=== PATIENT | male | born 1950 | race Caucasian/White ===

== ENCOUNTER 2017-08-07 15:12 | Inpatient (IN) ==
--- NOTE | 2017-08-07 15:45 | Emergency Department Note ---
Disposition Clinical Impression: Pulmonary embolism Qualifiers: Pulmonary embolism type: other Chronicity: acute Acute cor pulmonale presence: without acute cor pulmonale Qualified Code(s): I26.99 - Other pulmonary embolism without acute cor pulmonale Disposition: Admitted As Inpatient Condition: Serious Forms: ED Satisfaction Letter Time of Disposition: 17:36 SOB HPI - General Chief Complaint: ED Shortness of Breath/Dyspnea Stated Complaint: CP/LARRY Time Seen by Provider: 08/07/17 15:39 Source: patient Mode of arrival: ambulatory Limitations: no limitations Nursing Notes Reviewed: Yes Vital Signs Reviewed: Yes - History of Present Illness 67-year-old male who comes in complaining of chest pain and shortness of breath he began about 3 hours prior to arrival. Patient is a diabetic but has no history of heart disease. Patient states he had a blood clot in his artery on his left leg in the past in 2001 has had bypass surgery of his leg. Pt Subjective Complaint: chest pain Onset (ago): [employer] Severity: moderate Consistency/Duration: constant Improves with: nothing Worsens with: exertion Known history of: diabetes Associated symptoms: Reports: chest pain Treatment prior to arrival: none Cough present: Yes Cough Description: Involuntary Cough Frequency: Intermittent Sputum Amount: None - Related Data Home Medications Medication Instructions Recorded Confirmed Aspirin Enteric Coated [Aspirin EC] 325 mg PO DAILY 09/12/15 08/07/17 Lisinopril [Zestril] 20 mg PO DAILY 09/12/15 08/07/17 Lovastatin 10 mg PO DAILY 09/12/15 08/07/17 Meloxicam [Mobic] 15 mg PO DAILY 09/12/15 08/07/17 Zolpidem [Ambien] 10 mg PO HS 09/12/15 08/07/17 glyBURIDE [GlyBURIDE] 2.5 mg PO DAILY 09/12/15 08/07/17 metFORMIN [Glucophage] 1,000 mg PO BIDWM 09/12/15 08/07/17 Allergies Allergy/AdvReac Type Severity Reaction Status Date / Time No Known Allergies Allergy Verified 01/12/16 08:23 Constitutional: Denies: fever, chills, weakness, weight change Eyes: Denies: eye pain, eye discharge, vision change ENT ED: Denies: ear pain, throat pain, dental pain, hearing loss, epistaxis, congestion, dysphagia Cardiovascular: Reports: chest pain, dyspnea on exertion. Denies: palpitations , edema, syncope Respiratory: Reports: dyspnea. Denies: cough, wheezes, hemoptysis, stridor Gastrointestinal: Denies: abdominal pain, nausea, vomiting, diarrhea, constipation, hematemesis, melena, hematochezia Genitourinary: Denies: urgency, dysuria, frequency, hematuria Musculoskeletal: Denies: back pain, neck pain, arthralgia, myalgia Integumentary: Denies: rash, abrasion, lesions Neurological: Denies: headache, weakness, numbness, paresthesias, confusion, abnormal gait, vertigo Psychiatric: Denies: anxiety, depression, suicidal thoughts, homicidal thoughts , auditory hallucinations, visual hallucinations Endocrine: Denies: fatigue Hematological/Lymphatic: Denies: easy bleeding, easy bruising Allergic/Immunologic: Denies: facial swelling, urticaria Past Medical History - Past Medical History Medical history: Reports: diabetes, hyperlipidemia, hypertension, peripheral artery disease, thyroid disease, kidney stones, DVT Surgical history: Reports: thyroidectomy Psychiatric history: Reports: no psych history - Social History Smoking Status: Former smoker Smokeless Tobacco Status: No Alcohol use: Reports: none Drug use: Reports: none Physical Exam - General Limitations: no limitations General appearance: alert, other - Head Head exam: atraumatic, normocephalic, normal inspection - Eye Eye exam: Present: normal appearance, PERRL, EOMI - ENT ENT exam: normal exam, normal oropharynx, mucous membranes moist - Neck Neck exam: Present: normal inspection, full ROM, trachea midline - Chest Chest inspection: Present: normal inspection, symmetric chest wall rise - Respiratory Respiratory exam: Present: normal lung sounds bilaterally - Cardiovascular Cardiovascular exam: Present: normal rhythm, tachycardia, normal heart sounds - Abdominal Exam Abdominal exam: Present: soft, Non-Tender. Absent: tenderness, distention, guarding, rebound, rigidity - Extremities Exam Extremities exam: Present: normal inspection, full ROM. Absent: tenderness, pedal edema - Expanded Lower Extremity Exam Gait: observed and normal - Back Exam Back exam: Present: normal inspection, full ROM. Absent: tenderness - Neurological Exam Neurological exam: Present: alert, oriented X3 - Psychiatric Psychiatric exam: Present: normal affect, normal mood - Skin Skin exam: Present: warm, dry, intact, normal color Course - Reevaluation(s) Reevaluation #1: 67-year-old male who comes in with acute onset shortness of breath chest pain. Workup included a EKG that showed tachycardia and no acute ST segment change. Troponin was elevated 0.14 renal function was normal. CTA of the chest shows bilateral PEs. Time: 17:33 - Consultations Consultation #1: Discussed with Dr. Kraft cardiology he will see the patient in consultation. Time: 17:10 Consultation #2: Discussed with Nenzel radiology bilateral pulmonary embolism and possible small lung infarct Time: 17:25 Consultation #3: Discussed with , admit. Time: 17:35 Vital Signs Temperature 97.4 F L 08/07/17 15:24 Pulse Rate 129 08/07/17 15:24 Respiratory Rate 24 08/07/17 15:24 Blood Pressure 123/81 08/07/17 15:24 O2 Sat by Pulse Oximetry 92 08/07/17 15:24 Temperature 97.4 F L 08/07/17 15:24 Pulse Rate 122 08/07/17 17:13 Respiratory Rate 16 08/07/17 17:13 Blood Pressure 127/77 08/07/17 17:13 O2 Sat by Pulse Oximetry 92 08/07/17 17:13 Oxygen Delivery Oxygen Delivery Room Air Shortness of Breath/Dyspnea - Lab Data Result diagrams: 08/07/17 15:54 08/07/17 15:54 Lab Results 08/07/17 08/07/17 08/07/17 Range/Units 15:54 15:54 15:54 WBC 14.4 H (4.3-11.1) K/mcL RBC 5.10 (4.19-5.50) M/mcL Hgb 15.2 (12.9-16.9) g/dL Hct 45.8 (37.5-50.1) % MCV 89.8 (83.0-100.0) fL MCH 29.8 (28.0-33.3) pg MCHC 33.2 (31.6-35.5) g/dL RDW 13.7 (11.5-14.5) % Plt Count 250 (140-400) K/mcL MPV 10.2 (9.4-12.4) fL Immature Gran % 0.5 (0-4) % Seg Neutrophils % 80.8 % Lymphocytes % 13.2 % Monocytes % 4.5 % Eosinophils % 0.7 % Basophils % 0.3 % Neutrophils # 11.6 H (1.6-8.9) K/mcL Lymphocytes # 1.9 (0.6-4.6) K/mcL Monocytes # 0.7 (0.0-1.3) K/mcL Eosinophils # 0.1 (0.0-0.6) K/mcL Basophils # 0.1 (0.0-0.2) K/mcL D-Dimer (0-500) ng/mLFEU Sodium 135 L (136-145) mEq/L Potassium 4.7 (3.5-5.1) mEq/L Chloride 102 (98-107) mEq/L Carbon Dioxide 21 L (23-29) mEq/L BUN 20 (8-23) mg/dL Creatinine 1.05 (0.70-1.30) mg/dL Est GFR ( Amer) > 60 (> 60) Est GFR (Non-Af Amer) > 60 (> 60) BUN/Creatinine Ratio 19 (6-26) Glucose 153 H (70-105) mg/dL Calculated Osmolality 286 (280-300) Lactic Acid 2.4 H (0.5-2.2) mmol/L Calcium 9.4 (8.6-10.3) mg/dL Troponin I 0.14 H* (< 0.04) ng/mL B-Natriuretic Peptide (Less than 100) pg/mL 08/07/17 08/07/17 Range/Units 15:54 15:54 WBC (4.3-11.1) K/mcL RBC (4.19-5.50) M/mcL Hgb (12.9-16.9) g/dL Hct (37.5-50.1) % MCV (83.0-100.0) fL MCH (28.0-33.3) pg MCHC (31.6-35.5) g/dL RDW (11.5-14.5) % Plt Count (140-400) K/mcL MPV (9.4-12.4) fL Immature Gran % (0-4) % Seg Neutrophils % % Lymphocytes % % Monocytes % % Eosinophils % % Basophils % % Neutrophils # (1.6-8.9) K/mcL Lymphocytes # (0.6-4.6) K/mcL Monocytes # (0.0-1.3) K/mcL Eosinophils # (0.0-0.6) K/mcL Basophils # (0.0-0.2) K/mcL D-Dimer 1761 H (0-500) ng/mLFEU Sodium (136-145) mEq/L Potassium (3.5-5.1) mEq/L Chloride (98-107) mEq/L Carbon Dioxide (23-29) mEq/L BUN (8-23) mg/dL Creatinine (0.70-1.30) mg/dL Est GFR ( Amer) (> 60) Est GFR (Non-Af Amer) (> 60) BUN/Creatinine Ratio (6-26) Glucose (70-105) mg/dL Calculated Osmolality (280-300) Lactic Acid (0.5-2.2) mmol/L Calcium (8.6-10.3) mg/dL Troponin I (< 0.04) ng/mL B-Natriuretic Peptide 39 (Less than 100) pg/mL - EKG Data EKG attestation: Yes I reviewed and interpreted this EKG. EKG shows normal: Reports: sinus rhythm Rate: Reports: tachycardia Rhythm: Reports: NSR [place]/QRS: Reports: normal Interpretation: Reports: no acute changes Critical Care Time Critical Care Time: Yes Total Critical Care Time: 35 Attestation: The high probability of a clinically significant, sudden or life threatening deterioration of the [cardiovascular] system(s) required my full and direct attention, intervention and personal management. The aggregate critical care time was [] minutes. This time is in addition to time spent performing reported procedures but includes the following: [x] Data Review and interpretation [x] Patient assessment and monitoring of vital signs [x] Documentation [x] Medication orders and management
[2017-08-07 16:16] LABS: Basophils # 0.1 K/mcL (0.0-0.2); Basophils % 0.3 %; Eosinophils # 0.1 K/mcL (0.0-0.6); Eosinophils % 0.7 %; Hematocrit 45.8 % (37.5-50.1); Hemoglobin 15.2 g/dL (12.9-16.9); Immature Granulocytes % 0.5 % (0-4); Lymphocytes # 1.9 K/mcL (0.6-4.6); Lymphocytes % 13.2 %; Mean Corpuscular HGB Conc 33.2 g/dL (31.6-35.5); Mean Corpuscular Hemoglobin 29.8 pg (28.0-33.3); Mean Corpuscular Volume 89.8 fL (83.0-100.0); Mean Platelet Volume 10.2 fL (9.4-12.4); Monocytes # 0.7 K/mcL (0.0-1.3); Monocytes % 4.5 %; Neutrophils # 11.6 K/mcL (1.6-8.9); Platelet Count 250 K/mcL (140-400); Red Cell Distribution Width 13.7 % (11.5-14.5); Segmented Neutrophils % 80.8 %
[2017-08-07 16:38] LABS: BUN/Creatinine Ratio 19 (6-26); Blood Urea Nitrogen 20 mg/dL (8-23); Calcium 9.4 mg/dL (8.6-10.3); Carbon Dioxide 21 mEq/L (23-29); Chloride 102 mEq/L (98-107); Glucose 153 mg/dL (70-105); Osmolality,Calculated 286 (280-300); Potassium 4.7 mEq/L (3.5-5.1); Sodium 135 mEq/L (136-145); eGFR For African Americans > 60 (> 60); eGFR For Non-African Americans > 60 (> 60)
[2017-08-07] MEDS ORDERED: Isovue-370 500 ML INFUS..BTL IV ONE (16:41)
[2017-08-07 16:54] LABS: Troponin I 0.14 ng/mL (< 0.04)
[2017-08-07] MEDS ORDERED: *HR* Heparin 5,000 UNIT/ML VIAL IVP ONE (17:25)
[2017-08-07] MEDS ORDERED: *HR* Heparin 5,000 UNIT/ML VIAL IVP PRN (17:25)
[2017-08-07 17:30] LABS: INR 1.2; Prothrombin Time 13.3 Seconds (9.4-12.1)
[2017-08-07 17:32] LABS: Activated Partial Thrombo Time 29.6 Seconds (26.0-36.0)
--- NOTE | 2017-08-07 17:41 | Internal Med History&Physical ---
Date of Encounter: 08/07/17 Time of Encounter: 17:36 Assessment and Plan (1) Obesity Current visit: Yes Status: Chronic Qualifiers: Obesity type: due to excess calories Obesity classification: unspecified obesity classification Serious obesity comorbidity presence: unspecified whether serious comorbidity present Qualified Code(s): E66.09 - Other obesity due to excess calories (2) Elevated troponin Current visit: Yes Status: Acute Most likely due to pulmonary embolism with trend troponin (3) Pulmonary embolism Current visit: Yes Status: Acute Acute bilateral pulmonary embolism started on heparin per protocol With trend ````````````troponin obtain 2-D echo Qualifiers: Pulmonary embolism type: other Chronicity: acute Acute cor pulmonale presence: without acute cor pulmonale Qualified Code(s): I26.99 - Other pulmonary embolism without acute cor pulmonale (4) Diabetes mellitus type II, non insulin dependent Current visit: No Status: Chronic Chronic we will start him sliding scale (5) Hyperlipidemia Current visit: No Status: Chronic Chronic check a lipid profile in a.m. Qualifiers: Hyperlipidemia type: pure hypercholesterolemia Qualified Code(s): E78.00 - Pure hypercholesterolemia, unspecified; E78.0 - Pure hypercholesterolemia (6) Hypertension Current visit: No Status: Chronic Chronic and well controlled Qualifiers: Hypertension type: essential hypertension Qualified Code(s): I10 - Essential (primary) hypertension Internal Medicine - H&P: HPI Chief complaint: chest pain and sob Admitted From: Emergency Dept Plans for Post Hospital Care: Home History of present illness: Mr. Matias is a 67 year old male Patient with history of diabetes, hypertension, morbid obesity, TIA, high cholesterol, and vascular disease and thyroid disease. Patient present emergency room with 3 hours of acute sudden onset of shortness of breath and chest pain had persisted until he came into the emergency room in emergency room evaluation troponin was 0.14 CTA of the chest shows bilateral pulmonary embolism patient be started on full dose heparin protocol. He is hemodynamically stable stable we will also obtain 2-D echo in a.m. assess lv function and see if any RV strain Past Med Surg Social Fam HX - Past Medical History Medical history: diabetes, hyperlipidemia, hypertension, peripheral artery disease, thyroid disease, kidney stones, DVT Psychiatric history: no psych history - Past Surgical History Surgical History: thyroidectomy - Social History Smoking Status: Former smoker Smokeless Tobacco Status: No Alcohol use: none Drug use: none - Family History Mother Living Status: Hx Family Cancer: Yes (uterus, intestinal) Father Living Status: Hx Family Cancer: Yes (brain tumor) Internal Medicine - H&P: Meds Aspirin Enteric Coated [Aspirin EC] 325 mg PO DAILY 09/12/15 [History] Lisinopril [Zestril] 20 mg PO DAILY 09/12/15 [History] Lovastatin 10 mg PO DAILY 09/12/15 [History] Meloxicam [Mobic] 15 mg PO DAILY 09/12/15 [History] Zolpidem [Ambien] 10 mg PO HS 09/12/15 [History] glyBURIDE [GlyBURIDE] 2.5 mg PO DAILY 09/12/15 [History] metFORMIN [Glucophage] 1,000 mg PO BIDWM 09/12/15 [History] 3 Allergy/AdvReac Type Severity Reaction Status Date / Time No Known Allergies Allergy Verified 01/12/16 08:23 All Systems PM: A 10-system review of systems was performed and is negative for pertinent findings except as documented above in the HPI. - Constitutional Constitutional: no chills, no fever(s), no night sweats - EENT Eyes: no change in vision, no discharge, no pain, no photophobia Ears: no ear discharge, no ear pain, no tinnitus Nose, mouth and throat: no dysphagia, no nasal discharge, no neck pain, no sore throat - Cardiovascular Cardiovascular ROS IM: chest pain, dyspnea on exertion - Respiratory Respiratory: dyspnea, dyspnea on exertion - Gastrointestinal Gastrointestinal: no abdominal pain, no diarrhea, no hematemesis, no hematochezia, no melena, no nausea, no vomiting - Musculoskeletal Musculoskeletal ROS IM: no numbness, no tingling - Integumentary Integumentary IM: no rash, no unusual bruising - Constitutional Vitals: Temp Pulse Resp BP Pulse Ox 97.4 F L 122 16 127/77 92 08/07/17 15:24 08/07/17 17:13 08/07/17 17:13 08/07/17 17:13 08/07/17 17:13 General appearance: Present: mild distress - Eye Eye exam: Present: PERRL, conjuntiva pink, sclera anicteric Pupils: Present: PERRL - Neck Neck exam general surgery: Present: supple, trachea midline. Absent: lymphadenopathy - Respiratory Respiratory exam: Present: CTAB. Absent: accessory muscle use, rales, rhonchi, wheezes - Cardiovascular Cardiovascular exam: Present: RRR, +S1, +S2. Absent: diastolic murmur, gallop, rubs, systolic murmur - GI/Abdominal GI/Abdominal exam: Present: normal bowel sounds, soft, no peritoneal signs. Absent: distended, tenderness - Extremities Exam Extremities exam: Present: warm, radial pulses palpable and symmetrical. Absent : calf tenderness, cyanotic, pedal edema Internal Med - H&P Results - Labs CBC & Chem 7: 08/07/17 15:54 08/07/17 15:54 Labs: Short CBC 08/07/17 Range/Units 15:54 WBC 14.4 H (4.3-11.1) K/mcL Hgb 15.2 (12.9-16.9) g/dL Hct 45.8 (37.5-50.1) % Plt Count 250 (140-400) K/mcL Neutrophils # 11.6 H (1.6-8.9) K/mcL BMP 08/07/17 15:54 Sodium 135 L Potassium 4.7 Chloride 102 Carbon Dioxide 21 L BUN 20 Creatinine 1.05 Glucose 153 H Calcium 9.4 Cardiac Enzymes 08/07/17 Range/Units 15:54 Troponin I 0.14 H* (< 0.04) ng/mL - Impressions ITS Impressions Chest X-Ray 08/07/17 15:39 IMPRESSION: No acute process. D/ / Foreign Mckenzie MD / Foreign Mckenzie MD Interpreting Provider: Foreign Mckenzie MD Chest CTA 08/07/17 16:41 IMPRESSION: Bilateral pulmonary emboli are identified, involving the left upper and lower lobe, as well as the right upper and lower lobe. There is a focal ground-glass infiltrate seen in the right lower lobe, with no definite associated adjacent embolism to suggest a developing infarct. A focal pneumonic infiltrate is in the differential. Increased RV/LV ratio of 5.0/4.2. I discussed this with Dr. Bunch at 5:30 p.m. on 08/07/2017. No pulmonary arterial enlargement is identified. Enlarged left thyroid lobe which extends into the mediastinum, with an associated 13 mm nodule inferiorly. This would not be amenable by interventional radiology or typical thyroid aspiration for tissue evaluation given its location. Thyroid nodule follow-up recommendations below. RECOMMENDATIONS: Managing Incidental Thyroid Nodule Detected at CT or MRI or US 1. Further evaluation by thyroid Ultrasound recommended for these incidental nodules: Patient Age 18 years or less - Any nodule. Patient Age 19-34 years old - Nodule 1 cm in size or greater Patient Age 35 years or more - Nodule 1.5 cm in size or greater 2. Follow up thyroid ultrasound also recommend in these scenarios -Solitary nodule with high risk imaging features (locally invasive nodule or suspicious lymph nodes) -Any nodule in a heterogeneous enlarged thyroid gland 3. NO further imaging is recommended in the following scenarios -No f/u imaging is recommended for ITNs not meeting the above criteria. -No US or f/u recommended for ITNs without high risk features in pts. with limited life expectancy or significant co-morbidities, unless clinically warranted. Note: These recommendations do not apply to pts. w/ increased risk for thyroid cancer or pts. with symptomatic thyroid disease. Recommendations for f/u of Incidental Thyroid Nodules (ITN) found on CT, MR, NM and Extrathyroidal US are based upon the ACR white paper and Sommers 3-tiered system for managing ITNs: J Am Johana Radiol. 2015 May;12(2): 143-50 D/ / Sachin Masters MD / Sachin Masters MD Interpreting Provider: Sachin Masters MD
[2017-08-07 17:43] LABS: ABG Base Excess -2 mEq/L (-2 to 3); ABG HCO3 22 mEq/L (21-27); ABG Oxygen Saturation 95 % (95-98); ABG PCO2 34 mmHg (35-45); ABG PH 7.41 pH Units (7.32-7.45); ABG PO2 72 mmHg (85-104); ABG TCO2 23 mEq/L (20-26)
[2017-08-07] MEDS ORDERED: Acetaminophen 325 MG TABLET PO PRN (17:45)
[2017-08-07] MEDS ORDERED: traMADol 50 MG TABLET PO PRN (17:45)
[2017-08-07] MEDS ORDERED: Naloxone 0.4 MG/ML INJ IVP PRN (17:45)
[2017-08-07] MEDS ORDERED: *HR* Dextrose 50 % in Water (Syg) 50 ML SYRINGE IVP PRN (17:48)
[2017-08-07] MEDS ORDERED: D5% in Water 1,000 ML IVC PRN (17:48)
[2017-08-07] MEDS ORDERED: Dextrose Gel 15 GM/37.5 ML TUBE PO PRN ×2 (17:48)
[2017-08-07] MEDS: Heparin 25,000 UNIT/500 ML D5W 25,000 UNIT/500 ML BAG IVC SCH (18:04)
[2017-08-07] MEDS: Insulin LISPRO 300 UNITS/3 ML VIAL SQ SCH (20:02)
[2017-08-08 06:30] LABS: Hematocrit 44.2 % (37.5-50.1); Hemoglobin 14.7 g/dL (12.9-16.9); Mean Corpuscular HGB Conc 33.3 g/dL (31.6-35.5); Mean Corpuscular Hemoglobin 29.8 pg (28.0-33.3); Mean Corpuscular Volume 89.7 fL (83.0-100.0); Mean Platelet Volume 10.5 fL (9.4-12.4); Platelet Count 227 K/mcL (140-400); Red Blood Count 4.93 M/mcL (4.19-5.50); Red Cell Distribution Width 13.8 % (11.5-14.5)
[2017-08-08 07:13] LABS: Alanine Aminotransferase 61 Units/L (7-52); Albumin 3.8 g/dL (3.5-5.7); Albumin/Globulin Ratio 1.3 (1.1-2.2); Alkaline Phosphatase 60 Units/L (34-104); Aspartate Amino Transferase 38 Units/L (13-39); BUN/Creatinine Ratio 17 (6-26); Bilirubin,Total 0.5 mg/dL (0.3-1.0); Blood Urea Nitrogen 16 mg/dL (8-23); Calcium 8.9 mg/dL (8.6-10.3); Carbon Dioxide 25 mEq/L (23-29); Chloride 106 mEq/L (98-107); Chol/HDL Ratio 2.8 (0-4.9); Cholesterol 108 mg/dL (< 200); Glucose 133 mg/dL (70-105); HDL Cholesterol 39 mg/dL (40-59); LDL Cholesterol,Calculated 44 mg/dL (0-99); Osmolality,Calculated 289 (280-300); Potassium 4.5 mEq/L (3.5-5.1); Sodium 138 mEq/L (136-145); Total Protein 6.8 g/dL (6.4-8.9); Triglycerides 123 mg/dL (< 150); eGFR For African Americans > 60 (> 60); eGFR For Non-African Americans > 60 (> 60)
[2017-08-08] MEDS: Insulin LISPRO 300 UNITS/3 ML VIAL SQ SCH ×4 (07:43→20:00)
[2017-08-08] MEDS: Aspirin Enteric Coated 325 MG Tablet PO SCH (08:36)
[2017-08-08] MEDS: Lisinopril 20 MG TABLET PO SCH (08:36)
[2017-08-08] MEDS: Heparin 25,000 UNIT/500 ML D5W 25,000 UNIT/500 ML BAG IVC SCH (08:47)
[2017-08-08] MEDS ORDERED: Perflutren Lipid Microsphere 1.3 ML in 0.9 % Sodium Chloride 8.7 ML IVP ONE (09:32)
--- NOTE | 2017-08-08 09:57 | Cardiology Consult Note ---
<Efra Jones Eliza - Last Filed: 08/08/17 10:44> Date of Encounter: 08/08/17 Time of Encounter: 08:45 Assessment and Plan (1) Elevated troponin Current Visit: Yes Status: Acute CTA shows bilateral PE Trop: 0.14, 0.58. 0.61, and 0.33 - now downtrending, likely demand ischemia secondary to PE EKG shows tachycardia with no ST changes TTE in 2016: LVEF 55% with normal LV function, moderate diastolic dysfunction, no valvular disease Repeat echo pending to evaluate right heart strain Pt has significant risk factors for CAD (extensive PVD, HTN, DM) - plan for NM stress test tomorrow, NPO after midnight - further recommendations pending Echo and Stress test (2) Pulmonary embolism Current Visit: Yes Status: Acute Chest pain and dyspnea secondary to bilateral PE On heparin drip to transition to anticoagulation Chest pain now resolved Qualifiers: Pulmonary embolism type: other Chronicity: acute Acute cor pulmonale presence: without acute cor pulmonale Qualified Code(s): I26.99 - Other pulmonary embolism without acute cor pulmonale (3) Hyperlipidemia Current Visit: Yes Status: Chronic Continue statin Qualifiers: Hyperlipidemia type: pure hypercholesterolemia Qualified Code(s): E78.00 - Pure hypercholesterolemia, unspecified; E78.0 - Pure hypercholesterolemia (4) Hypertension Current Visit: Yes Status: Chronic Continue lisinopril Qualifiers: Hypertension type: essential hypertension Qualified Code(s): I10 - Essential (primary) hypertension (5) Diastolic CHF, chronic Current Visit: Yes Status: Chronic Well compensated Diastolic CHF - no evidence of exacerbation, mild bilateral edema, no crackles on exam, no JVD CXR shows no acute process, no pleural effusions Previous EF 50% with moderate diastolic dysfunction Continue ACEI and ASA (6) MINA (obstructive sleep apnea) Current Visit: Yes Status: Acute Compliant with CPAP at night Discussion w patient/family: The assessment and plan as outlined above was discussed with the patient and/or family members who expressed understanding and agreement. All questions were answered. Thank you for involving us in the care of your patient. Please call with any questions. History of Present Illness Consult date: 08/07/17 Requesting physician: Nilton Bunch Consult reason: Chest pain, positive troponin Chief complaint: Dyspnea, Chest pain History of present illness: Mr. Matias is a 67 year old male with PMH of HTN, HLD, PVD, DVT, DM, MINA, and obesity, presented to the hospital with 3 hour history of dyspnea and central chest pain. Diagnosed with bilateral PE and started on Heparin drip. Consulted for elevated troponin. Patient denies chest pain now and states his breathing is much improved. Denies any cardiac history, but he does have significant risk factors. Reports extensive peripheral vascular disease with multiple interventions. Does admit to progressively worsening PATRICK over time and has become very inactive due to leg pain and breathing. Reports his LE edema has been stable for several years. Denies associated diaphoresis, palpitations, or N /V. Prior Cardiac Imaging: - TTE 2016: LVEF 50%, normal LV function, moderate diastolic dysfunction, no valvular disease - previous stress test in 1998 - no hx of cardiac disease Past Med Surg Social Fam HX - Past Medical History Medical history: diabetes, hyperlipidemia, hypertension, peripheral artery disease, thyroid disease, kidney stones, DVT Psychiatric history: no psych history - Past Surgical History Surgical History: thyroidectomy - Social History Smoking Status: Former smoker Smokeless Tobacco Status: No Alcohol use: none Drug use: none - Family History Mother Living Status: Hx Family Cancer: Yes (uterus, intestinal) Father Living Status: Hx Family Cancer: Yes (brain tumor) Medications and Allergies Aspirin Enteric Coated [Aspirin EC] 325 mg PO DAILY 09/12/15 [History] Lisinopril [Zestril] 20 mg PO DAILY 09/12/15 [History] Lovastatin 10 mg PO DAILY 09/12/15 [History] Meloxicam [Mobic] 15 mg PO DAILY 09/12/15 [History] Zolpidem [Ambien] 10 mg PO HS 09/12/15 [History] glyBURIDE [GlyBURIDE] 2.5 mg PO DAILY 09/12/15 [History] metFORMIN [Glucophage] 1,000 mg PO BIDWM 09/12/15 [History] 3 Allergy/AdvReac Type Severity Reaction Status Date / Time No Known Allergies Allergy Verified 01/12/16 08:23 All Systems Review: The remainder of the systems were reviewed and are negative Physical Examination Vital Signs, Last 4 Hours Temp Pulse Resp BP Pulse Ox 08/08/17 08:40 96 08/08/17 07:31 97.7 F 87 16 113/73 96 General: Conversant, No Apparent Distress HEENT: Atraumatic, Normocephaly, Mucus Membranes Moist Neck: No JVD, Normal carotid pulses Cardiac: Reg Rate and Rhythm, Normal S1 and S2, No Murmur Lungs: Normal Breath Sounds, No Wheeze, Rales, Rhonchi Neuro: Alert and responsive, No focal deficits noted Abdomen: Soft, Non-Tender Skin: No rashes noted on visualized skin Musculoskeletal: No Chest Wall Tenderness Extremities: No Clubbing, No Cyanosis, Normal Pulses, Other (mild bilateral LE edema) Results 08/08/17 06:07 08/08/17 06:07 Lab Results 08/07/17 08/08/17 08/08/17 21:31 00:23 00:23 WBC Hgb Hct Plt Count APTT 100.0 H D Sodium Potassium Chloride Carbon Dioxide BUN Creatinine Glucose Calcium Magnesium Total Bilirubin AST ALT Alkaline Phosphatase Troponin I 0.58 H* 0.61 H* B-Natriuretic Peptide 08/08/17 08/08/17 08/08/17 06:07 06:07 06:07 WBC 9.9 Hgb 14.7 Hct 44.2 Plt Count 227 APTT Sodium 138 Potassium 4.5 Chloride 106 Carbon Dioxide 25 BUN 16 Creatinine 0.94 Glucose 133 H Calcium 8.9 Magnesium 2.0 Total Bilirubin 0.5 AST 38 ALT 61 H Alkaline Phosphatase 60 Troponin I B-Natriuretic Peptide 262 H 08/08/17 08/08/17 06:07 06:07 WBC Hgb Hct Plt Count APTT 61.0 H Sodium Potassium Chloride Carbon Dioxide BUN Creatinine Glucose Calcium Magnesium Total Bilirubin AST ALT Alkaline Phosphatase Troponin I 0.33 H* B-Natriuretic Peptide Consult Discharge Plan - Plan Referrals: Stefani Hutchison CNP [Partnered Physician] - 08/10/17 10:35 am <Jackson Kraft - Last Filed: 08/09/17 17:22> Date of Encounter: 08/08/17 Time of Encounter: 18:30 - Attending Attestation I examined this patient and my medical decision-making was reviewed with the Resident Physician. I agree with the documented findings, disposition and treatment plan as described except to the extent set forth below. CC: Chest pain Pt reports sudden onset severe, 10/10 mid sternal chest pain, occurred at rest, associated with mild shortness of breath, which became progressively more severe , no nausea or diaphoresis, palpitations or near syncope. Pt reports chest pain slowly improved over 45 to 60 minutes. He has not had a reoccurrence of chest pain since admission. Shortness of breath has improved. PMH: Reviewed Physical exam, reviewed, agree with above IMP: 1. Acute bilateral pulmonary embolism, now on heparin drip 2. Elevated troponin: .58 and .61, mildly elevated, no acute EKG changes, most consistent with demand ischemia, however in light of multiple risk factors, pt is a candidate for pharmocologic nuclear stress imaging, will schedule before discharge, 2. PVD with hx multple revascularization procedures 3. Hyptn; adequately controlled on current meds. 4. 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 Hyperlipidemia - reports at goal on most recent evaluation Assessment and Plan Discussion w patient/family: The assessment and plan as outlined above was discussed with the patient and/or family members who expressed understanding and agreement. All questions were answered. Thank you for involving us in the care of your patient. Please call with any questions. History of Present Illness History of present illness: Mr. Matias is a 67 year old male All Systems Review: The remainder of the systems were reviewed and are negative Physical Examination Vital Signs, Last 4 Hours Temp Pulse Resp BP Pulse Ox 08/09/17 15:41 97.7 F 79 18 120/72 93 08/09/17 15:19 96 Results 08/09/17 00:13 08/09/17 00:13 Lab Results 08/08/17 08/09/17 08/09/17 18:34 00:13 00:13 WBC 11.4 H Hgb 14.3 Hct 43.4 Plt Count 233 APTT 83.4 H D Sodium 138 Potassium 4.2 Chloride 105 Carbon Dioxide 26 BUN 19 Creatinine 1.00 Glucose 108 H Calcium 8.8 Magnesium 1.9 08/09/17 08/09/17 08/09/17 00:13 08:33 15:31 WBC Hgb Hct Plt Count APTT 56.7 H 84.0 H 55.8 H Sodium Potassium Chloride Carbon Dioxide BUN Creatinine Glucose Calcium Magnesium
--- NOTE | 2017-08-08 13:50 | Oncology Inp Consult Note ---
<Ana Altamirano - Last Filed: 08/08/17 17:54> Date of Encounter: 08/08/17 Time of Encounter: 13:50 Assessment and Plan (1) Pulmonary embolism Status: Acute Assessment and plan: CTA revealed "Bilateral pulmonary emboli are identified, involving the left upper and lower lobe, as well as the right upper and lower lobe. There is a focal ground-glass infiltrate seen in the right lower lobe, with no definite associated adjacent embolism to suggest a developing infarct. A focal pneumonic infiltrate is in the differential." Given that this is this patients second unprovoked thrombotic event, recommendation is made to continue anticoagulation indefinitely. Recommend he transition to Xarelto 15 mg PO BID x21 days then transition to Xarelto 20 mg PO daily indefinitely. Will defer stopping heparin gtt/starting xarelto to primary team pending his further cardiac workup. Cardiology consult reviewed, he is planned for stress test tomorrow. Echo report pending. He understands that the main risk with AC is bleeding and understands s/s of bleeding to watch for and report. His kidney function is normal at this time. Will also order BLE venous doppler as he does report LLE cramping although mild and intermittent, would like to establish baseline. manager of creative services consult ordered to assess insurance coverage for Xarelto. He remains on 2L nasal cannula, continue to monitor during hospital stay and attempt to wean, 6 minute walk test if needed. Discussed general course to expect with PE and that symptoms will continue to resolve with AC management, if symptoms worsen or do not improve further workup will be needed at that time. Will arrange for follow up with Dr. Panda as an outpatient. Please refer to Dr. Panda's attestation below for additional details. Thank you for involving us within the care of this patient. Qualifiers: Pulmonary embolism type: other Chronicity: acute Acute cor pulmonale presence: without acute cor pulmonale Qualified Code(s): I26.99 - Other pulmonary embolism without acute cor pulmonale - Data of Consult Patient: new to practice Consult date: 08/08/17 Requesting Physician: Josi Holbrook MD Primary Care Provider: Aguilar Waters MD - Consult Narrative Reason for consult: Acute PE History of present illness: Mr. Matias is a 67 year old male with past medical history significant for diabetes, hypertension, morbid obesity, TIA, high cholesterol, LLE DVT around 1997, and vascular disease and thyroid disease. He presented to the ER on 08/07/2017 following acute onset of chest pain and SOB unrelieved with rest for over 2 hours. CTA revealed "Bilateral pulmonary emboli are identified, involving the left upper and lower lobe, as well as the right upper and lower lobe. There is a focal ground-glass infiltrate seen in the right lower lobe, with no definite associated adjacent embolism to suggest a developing infarct. A focal pneumonic infiltrate is in the differential." He has an elevated troponin (0.14 in ER). He was started on a heparin gtt and transferred to inpatient admission for further workup and cardiology consultation. He reports a history of LLE DVT around 1997 which was apparently unprovoked in nature and treated only with aspirin. Since this time, he has had multiple vascular complications requiring vascular surgical interventions. Mr. Matias is obese, he quit smoking in 2003 with about a 37 pack year history. He has not had any recent prolonged travel, hospitalization or recent procedure. He is currently working to lose weight with weight watchers and attempting to walk on a regular basis. Past Med Surg Social Fam HX - Past Medical History Medical history: diabetes, hyperlipidemia, hypertension, peripheral artery disease, thyroid disease, kidney stones, DVT Psychiatric history: no psych history - Past Surgical History Surgical History: thyroidectomy - Social History Smoking Status: Former smoker Smokeless Tobacco Status: No Alcohol use: none Drug use: none - Family History Mother Living Status: Hx Family Cancer: Yes (uterus, intestinal) Father Living Status: Hx Family Cancer: Yes (brain tumor) Medications and Allergies Aspirin Enteric Coated [Aspirin EC] 325 mg PO DAILY 09/12/15 [History] Lisinopril [Zestril] 20 mg PO DAILY 09/12/15 [History] Lovastatin 10 mg PO DAILY 09/12/15 [History] Meloxicam [Mobic] 15 mg PO DAILY 09/12/15 [History] Zolpidem [Ambien] 10 mg PO HS 09/12/15 [History] glyBURIDE [GlyBURIDE] 2.5 mg PO DAILY 09/12/15 [History] metFORMIN [Glucophage] 1,000 mg PO BIDWM 09/12/15 [History] 3 Allergy/AdvReac Type Severity Reaction Status Date / Time No Known Allergies Allergy Verified 01/12/16 08:23 Constitutional: Present: as per HPI. Absent: anorexia, chills, fatigue, fever(s ), frequent falls, weakness, weight loss Eyes: Absent: change in vision Nose, mouth and throat: Absent: dysphagia Cardiovascular: Present: as per HPI, chest pain Additional comments: improved since admission Respiratory: Present: as per HPI, dyspnea. Absent: cough Additional comments: improved since admission Gastrointestinal: Absent: abdominal pain, hematemesis, hematochezia, melena, nausea, vomiting Additional comments: dysuria, hematuria Musculoskeletal: Absent: muscle weakness Integumentary: Present: other Additional comments: chronic skin changes to LLE secondary to venous insufficiency Neurological: Absent: confusion, focal weakness, frequent falls Hematologic/Lymphatic: Present: as per HPI Oncology - Exam - Constitutional Vitals: Temp Pulse Resp BP Pulse Ox 97.7 F 86 16 108/66 95 08/08/17 11:20 08/08/17 11:20 08/08/17 11:20 08/08/17 11:20 08/08/17 11:20 General appearance: cooperative, no acute distress, no febrile - Head Head exam: Present: atraumatic - ENT ENT exam: Present: mucous membranes moist - Respiratory Respiratory exam: Present: CTAB. Absent: respiratory distress - Cardiovascular Cardiovascular exam: Present: RRR, +S1, +S2 - GI/Abdominal GI/Abdominal exam: Present: normal bowel sounds, soft. Absent: tenderness - Extremities Exam Additional comments: currently denies calf tenderness, LLE appears slightly larger than RLE, states this is chronic, unable to completely assess with compression stockings in place - Neurological Exam Neurological exam: Present: alert, oriented X3, no focal deficits, strengths equal and symetr throughout - Psychiatric Psychiatric exam: Present: normal affect, normal mood - Skin Skin exam: Present: dry, intact, normal color, warm Oncology - Results Labs: Short CBC 08/08/17 Range/Units 06:07 WBC 9.9 (4.3-11.1) K/mcL Hgb 14.7 (12.9-16.9) g/dL Hct 44.2 (37.5-50.1) % Plt Count 227 (140-400) K/mcL BMP 08/08/17 06:07 Sodium 138 Potassium 4.5 Chloride 106 Carbon Dioxide 25 BUN 16 Creatinine 0.94 Glucose 133 H Calcium 8.9 Cardiac Enzymes 08/07/17 08/08/17 08/08/17 Range/Units 21:31 00:23 06:07 Troponin I 0.58 H* 0.61 H* 0.33 H* (< 0.04) ng/mL Liver Function 08/08/17 Range/Units 06:07 Total Bilirubin 0.5 (0.3-1.0) mg/dL AST 38 (13-39) Units/L ALT 61 H (7-52) Units/L Alkaline Phosphatase 60 (34-104) Units/L Albumin 3.8 (3.5-5.7) g/dL Consult Discharge Plan - Plan Referrals: Stefani Hutchison CNP [Partnered Physician] - 08/10/17 10:35 am <Luis Panda - Last Filed: 08/09/17 07:27> Date of Encounter: 08/09/17 - Data of Consult Requesting Physician: Josi Holbrook MD Primary Care Provider: Aguilar Waters MD - Consult Narrative History of present illness: Mr. Matias is a 67 year old male Oncology - Exam - Constitutional Vitals: Temp Pulse Resp BP Pulse Ox 97.6 F 78 17 112/73 96 08/09/17 07:17 08/09/17 07:17 08/09/17 07:17 08/09/17 07:17 08/09/17 07:17 Oncology - Results Labs: Short CBC 08/09/17 Range/Units 00:13 WBC 11.4 H (4.3-11.1) K/mcL Hgb 14.3 (12.9-16.9) g/dL Hct 43.4 (37.5-50.1) % Plt Count 233 (140-400) K/mcL Neutrophils # 6.4 (1.6-8.9) K/mcL BMP 08/09/17 00:13 Sodium 138 Potassium 4.2 Chloride 105 Carbon Dioxide 26 BUN 19 Creatinine 1.00 Glucose 108 H Calcium 8.8 - Attending Attestation I have seen and examined Mr. Matias and agree with Ms. altamirano's assessment. Patient has newly diagnosed unprovoked pulmonary embolism. In addition, he has a history of the lower extremity thrombosis in the distant past. He has been placed on a heparin drip and I think transitioning to Xarelto is is reasonable time of discharge. I would recommend baseline duplex Doppler of the lower extremities if not completed. Given the unprovoked nature of his event as well as his history of prior thrombosis, I think an indefinite course of anticoagulation is indicated. We discussed expectations of recovery from his pulmonary embolism. He may require discharged on oxygen temporarily There is no role for thrombophilia testing at this juncture.
[2017-08-08] MEDS: *HR* Heparin 5,000 UNIT/ML VIAL IVP PRN (15:00)
--- NOTE | 2017-08-08 15:37 | Internal Med Progress Note ---
Date of Encounter: 08/08/17 Time of Encounter: 14:50 - Assessment and plan (1) Elevated troponin Current Visit: Yes Status: Acute Assessment and plan: Cardiology evaluation appreciated f/u 2D echo scheduled for nuclear stress test in am, NPO after midnight pt currently chest pain free (2) Pulmonary embolism Current Visit: Yes Status: Acute Assessment and plan: Chest pain and dyspnea resolved continue heparin gtt at this time oncology evaluation appreciated will defer to oncology for [facility] anticoagulation O2 supplementation as needed Qualifiers: Pulmonary embolism type: other Chronicity: acute Acute cor pulmonale presence: without acute cor pulmonale Qualified Code(s): I26.99 - Other pulmonary embolism without acute cor pulmonale (3) Diastolic CHF, chronic Current Visit: Yes Status: Chronic Assessment and plan: not in acute exacerbation continue home medications (4) Hyperlipidemia Current Visit: Yes Status: Chronic Assessment and plan: continue home statin dose Qualifiers: Hyperlipidemia type: pure hypercholesterolemia Qualified Code(s): E78.00 - Pure hypercholesterolemia, unspecified; E78.0 - Pure hypercholesterolemia (5) Hypertension Current Visit: Yes Status: Chronic Assessment and plan: BP within acceptable range continue home meds Qualifiers: Hypertension type: essential hypertension Qualified Code(s): I10 - Essential (primary) hypertension (6) DVT prophylaxis Current Visit: No Status: Acute Assessment and plan: on heparin gtt (7) Diabetes mellitus type II, non insulin dependent Current Visit: No Status: Chronic Assessment and plan: hold oral antihyperglycemic agents continue sliding scale insulin algorithm monitor FS and BG ADA diet (8) Morbid obesity with BMI of 40.0-44.9, adult Current Visit: Yes Status: Chronic - Time Spent With Patient Total time spent is greater than 50% in coordination of care (as documented) at patient's floor/unit and/or counseling patient: - Subjective Interval history: Patient seen and examined at bedside. Resting in bed and reports of feeling significantly better compared to previous day. Reports of complete resolution of the chest pain. Saturating well on nasal cannula and denies any Oxygen supplementation at home. Denies any difficulty breathing at this time. Oncology and cardiology evaluation appreciated pt scheduled for nuclear stress test in am continue heparin gtt at this time. - Constitutional Vitals: Temp Pulse Resp BP Pulse Ox 97.7 F 86 16 108/66 95 08/08/17 11:20 08/08/17 11:20 08/08/17 11:20 08/08/17 11:20 08/08/17 11:20 General appearance: Present: cooperative, A&O X 3, morbidly obese, pleasant, no acute distress - Head Head exam: Present: atraumatic, normocephalic - Eye Eye exam: Present: conjuntiva pink, sclera anicteric - Respiratory Respiratory exam: Present: CTAB. Absent: accessory muscle use, rales, rhonchi, wheezes - Cardiovascular Cardiovascular exam: Present: RRR, +S1, +S2. Absent: diastolic murmur, gallop, rubs, systolic murmur - GI/Abdominal GI/Abdominal exam: Present: normal bowel sounds, soft, no peritoneal signs. Absent: distended, tenderness - Extremities Exam Extremities exam: Present: warm, radial pulses palpable and symmetrical. Absent : calf tenderness, tenderness - Neurological Exam Neurological exam: Present: oriented X3 Internal Medicine: Result - Labs CBC & Chem 7: 08/08/17 06:07 08/08/17 06:07 Labs: Short CBC 08/08/17 Range/Units 06:07 WBC 9.9 (4.3-11.1) K/mcL Hgb 14.7 (12.9-16.9) g/dL Hct 44.2 (37.5-50.1) % Plt Count 227 (140-400) K/mcL BMP 08/08/17 06:07 Sodium 138 Potassium 4.5 Chloride 106 Carbon Dioxide 25 BUN 16 Creatinine 0.94 Glucose 133 H Calcium 8.9 Cardiac Enzymes 08/07/17 08/08/17 08/08/17 Range/Units 21:31 00:23 06:07 Troponin I 0.58 H* 0.61 H* 0.33 H* (< 0.04) ng/mL Liver Function 08/08/17 Range/Units 06:07 Total Bilirubin 0.5 (0.3-1.0) mg/dL AST 38 (13-39) Units/L ALT 61 H (7-52) Units/L Alkaline Phosphatase 60 (34-104) Units/L Albumin 3.8 (3.5-5.7) g/dL - ABG Interpretation ABG results: ABG ABG pH 7.41 pH Units (7.32-7.45) 08/07/17 17:36 ABG pCO2 34 mmHg (35-45) L 08/07/17 17:36 ABG pO2 72 mmHg (85-104) L 08/07/17 17:36 ABG O2 Saturation 95 % (95-98) 08/07/17 17:36 PT/INR, D-dimer PT 13.3 Seconds (9.4-12.1) H 08/07/17 15:54 D-Dimer 1761 ng/mLFEU (0-500) H 08/07/17 15:54 - Impressions Impressions Echocardiogram 08/08/17 09:30 Impressions: LVEF 55%. Not all LV wall segments are well visualized. Mild left ventricular diastolic dysfunction. RV is dilated with mild reduction in function. Mild tricuspid regurgitation. No pulmonary hypertension by TR gradient. IVC is not well visualized. Left Ventricular Wall Motion: Rest Echo Findings The mid inferior lateral and basal inferior lateral [place] were not visualized. All other wall segments showed normal motion. Findings: Study Quality * Technically sub-optimal due to body habitus. ECG Findings * Normal sinus rhythm. Left Ventricle * Mild left ventricular diastolic dysfunction. * LVEF 55%. * Normal LV chamber size and wall thickness. Right Ventricle * RV is dilated with mild reduction in function. Left Atrium * Normal left atrial size. Right Atrium * RA is mild-moderately dilated. Aortic Valve * No aortic regurgitation. * Aortic valve not well visualized. * No aortic stenosis. Mitral Valve * No mitral regurgitation. * Normal mitral valve structure. * No mitral stenosis. Tricuspid Valve * Normal tricuspid valve structure. * Mild tricuspid regurgitation. Pulmonic Valve * Pulmonic valve is not well visualized. * No pulmonic stenosis. * No pulmonic regurgitation. Pulmonary Artery * Pulmonary artery not well visualized. Aorta * Not well visualized. Pericardium * There is no pericardial effusion present. Interatrial Septum * No evidence of PFO by color Doppler. IVC * The IVC is not well evaluated. - VTE Documentation of Mechanical Device: Graduated compression elastic hosiery Consult Discharge Plan - Plan Referrals: Aguilar Waters MD [Primary Care Provider] - (web request sent on 08/08/17)
[2017-08-09] MEDS: Heparin 25,000 UNIT/500 ML D5W 25,000 UNIT/500 ML BAG IVC SCH ×2 (01:15→16:08)
[2017-08-09 01:16] LABS: Basophils # 0.1 K/mcL (0.0-0.2); Basophils % 0.6 %; Eosinophils # 0.4 K/mcL (0.0-0.6); Eosinophils % 3.3 %; Hematocrit 43.4 % (37.5-50.1); Hemoglobin 14.3 g/dL (12.9-16.9); Immature Granulocytes % 0.3 % (0-4); Lymphocytes # 3.6 K/mcL (0.6-4.6); Lymphocytes % 31.7 %; Mean Corpuscular HGB Conc 32.9 g/dL (31.6-35.5); Mean Corpuscular Hemoglobin 29.7 pg (28.0-33.3); Mean Platelet Volume 10.8 fL (9.4-12.4); Monocytes # 0.9 K/mcL (0.0-1.3); Monocytes % 7.8 %; Neutrophils # 6.4 K/mcL (1.6-8.9); Platelet Count 233 K/mcL (140-400); Red Blood Count 4.82 M/mcL (4.19-5.50); Red Cell Distribution Width 13.7 % (11.5-14.5); Segmented Neutrophils % 56.3 %
[2017-08-09 01:35] LABS: BUN/Creatinine Ratio 19 (6-26); Blood Urea Nitrogen 19 mg/dL (8-23); Calcium 8.8 mg/dL (8.6-10.3); Carbon Dioxide 26 mEq/L (23-29); Chloride 105 mEq/L (98-107); Glucose 108 mg/dL (70-105); Magnesium 1.9 mg/dL (1.6-2.6); Osmolality,Calculated 289 (280-300); Phosphorous 3.4 mg/dL (2.7-4.5); Potassium 4.2 mEq/L (3.5-5.1); Sodium 138 mEq/L (136-145); eGFR For African Americans > 60 (> 60); eGFR For Non-African Americans > 60 (> 60)
[2017-08-09] MEDS: *HR* Heparin 5,000 UNIT/ML VIAL IVP PRN ×2 (03:12→16:43)
[2017-08-09] MEDS: Insulin LISPRO 300 UNITS/3 ML VIAL SQ SCH ×5 (07:42→20:08)
[2017-08-09] MEDS: Aspirin Enteric Coated 325 MG Tablet PO SCH (08:15)
[2017-08-09] MEDS: Lisinopril 20 MG TABLET PO SCH (08:15)
--- NOTE | 2017-08-09 09:47 | Cardiology Progress Note ---
<RobertEfra Eliza - Last Filed: 08/09/17 12:35> Date of Encounter: 08/09/17 Time of Encounter: 09:20 Assessment and Plan (1) Elevated troponin Current Visit: Yes Status: Acute CTA shows bilateral PE. No CP or dyspnea now. Trop: 0.14, 0.58. 0.61, and 0.33 - now downtrending, likely demand ischemia secondary to PE EKG shows tachycardia with no ST changes TTE in 2016: LVEF 55% with normal LV function, moderate diastolic dysfunction, no valvular disease TTE: LVEF 60-65%, RV dilated with normal function, mild-moderate MR and TR, mild pulmonary HTN Pt has significant risk factors for CAD (extensive PVD, HTN, DM) - need to wait one more day for stress test due to PE Plan for NM stress test tomorrow, NPO after midnight - further recommendations pending Stress test (2) Pulmonary embolism Current Visit: Yes Status: Acute Chest pain and dyspnea secondary to bilateral PE On heparin drip to transition to anticoagulation - Xarelto per Hem/Onc Chest pain now resolved Qualifiers: Pulmonary embolism type: other Chronicity: acute Acute cor pulmonale presence: without acute cor pulmonale Qualified Code(s): I26.99 - Other pulmonary embolism without acute cor pulmonale (3) Hyperlipidemia Current Visit: Yes Status: Chronic Continue statin Qualifiers: Hyperlipidemia type: pure hypercholesterolemia Qualified Code(s): E78.00 - Pure hypercholesterolemia, unspecified; E78.0 - Pure hypercholesterolemia (4) Hypertension Current Visit: Yes Status: Chronic Continue lisinopril Qualifiers: Hypertension type: essential hypertension Qualified Code(s): I10 - Essential (primary) hypertension (5) Diastolic CHF, chronic Current Visit: Yes Status: Chronic Well compensated Diastolic CHF - no evidence of exacerbation, mild bilateral edema, no crackles on exam, no JVD CXR shows no acute process, no pleural effusions Previous EF 50% with moderate diastolic dysfunction TTE: LVEF 60-65% with mild diastolic dysfunction Continue ACEI and ASA (6) MINA (obstructive sleep apnea) Current Visit: Yes Status: Acute Compliant with CPAP at night Discussion w patient/family: The assessment and plan as outlined above was discussed with the patient and/or family members who expressed understanding and agreement. All questions were answered. Thank you for involving us in the care of your patient. Please call with any questions. Subjective Principal diagnosis: Bilateral PE Interval history: Pt doing well. Denies chest pain, dyspnea, palpitations, or LE edema. Denies other complaints. Objective Vital Signs, Last 4 Hours Temp Pulse Resp BP Pulse Ox 08/09/17 07:17 97.6 F 78 17 112/73 96 General: Conversant, No Apparent Distress HEENT: Atraumatic, Normocephaly, Mucus Membranes Moist Neck: No JVD, Normal carotid pulses Cardiac: Reg Rate and Rhythm, Normal S1 and S2, No Murmur Lungs: Normal Breath Sounds, No Wheeze, Rales, Rhonchi Neuro: Alert and responsive, No focal deficits noted Abdomen: Soft, Non-Tender Skin: No rashes noted on visualized skin Musculoskeletal: No Chest Wall Tenderness Extremities: No Clubbing, No Cyanosis, Normal Pulses, Other (Mild LE edema bilaterally) Results 08/09/17 00:13 08/09/17 00:13 Lab Results 08/08/17 08/08/17 08/09/17 12:05 18:34 00:13 WBC 11.4 H Hgb 14.3 Hct 43.4 Plt Count 233 APTT 50.9 H 83.4 H D Sodium Potassium Chloride Carbon Dioxide BUN Creatinine Glucose Calcium Magnesium 08/09/17 08/09/17 08/09/17 00:13 00:13 08:33 WBC Hgb Hct Plt Count APTT 56.7 H 84.0 H Sodium 138 Potassium 4.2 Chloride 105 Carbon Dioxide 26 BUN 19 Creatinine 1.00 Glucose 108 H Calcium 8.8 Magnesium 1.9 - VTE Documentation of Mechanical Device: Graduated compression elastic hosiery Consult Discharge Plan - Plan Referrals: Stefani Hutchison CNP [Partnered Physician] - 08/10/17 10:35 am <Jackson Kraft - Last Filed: 08/09/17 23:33> Date of Encounter: 08/09/17 Time of Encounter: 17:25 Assessment and Plan Discussion w patient/family: The assessment and plan as outlined above was discussed with the patient and/or family members who expressed understanding and agreement. All questions were answered. Thank you for involving us in the care of your patient. Please call with any questions. Objective Vital Signs, Last 4 Hours Temp Pulse Resp BP Pulse Ox 08/09/17 15:41 97.7 F 79 18 120/72 93 08/09/17 15:19 96 Results 08/09/17 00:13 08/09/17 00:13 Lab Results 08/08/17 08/09/17 08/09/17 18:34 00:13 00:13 WBC 11.4 H Hgb 14.3 Hct 43.4 Plt Count 233 APTT 83.4 H D Sodium 138 Potassium 4.2 Chloride 105 Carbon Dioxide 26 BUN 19 Creatinine 1.00 Glucose 108 H Calcium 8.8 Magnesium 1.9 08/09/17 08/09/17 08/09/17 00:13 08:33 15:31 WBC Hgb Hct Plt Count APTT 56.7 H 84.0 H 55.8 H Sodium Potassium Chloride Carbon Dioxide BUN Creatinine Glucose Calcium Magnesium - Attending Attestation I examined this patient and my medical decision-making was reviewed with the Resident Physician. I agree with the documented findings, disposition and treatment plan as described except to the extent set forth below. CC: shortness of breath Pt reports shortness of breath has improved, no longer has conversational dyspnea, bilateral leg pain has also improved. PE: reviewed as above, no change IMP: 1. PE: bilateral, shortness of breath improving, on systemic anticoagulation with heparin 2. Elevated troponin, of unclear significance, ordered stress imaging to evaluate for ischemic substrate in light of multiple risk factors. Further recommendations pending cardiac imaging.
--- NOTE | 2017-08-09 14:13 | Oncology Inp Progress Note ---
Date of Encounter: 08/09/17 Time of Encounter: 14:13 (1) Pulmonary embolism Status: Acute Assessment and plan: CTA revealed "Bilateral pulmonary emboli are identified, involving the left upper and lower lobe, as well as the right upper and lower lobe. There is a focal ground-glass infiltrate seen in the right lower lobe, with no definite associated adjacent embolism to suggest a developing infarct. A focal pneumonic infiltrate is in the differential." Bilateral venous doppler negative. Given that this is this patients second unprovoked thrombotic event, recommendation is made to continue anticoagulation indefinitely. Recommend he transition to Xarelto 15 mg PO BID x21 days then transition to Xarelto 20 mg PO daily indefinitely. Will defer stopping heparin gtt/starting xarelto to primary team pending his further cardiac workup. Per cardiology note: TTE: LVEF 60-65%, RV dilated with normal function, mild- moderate MR and TR, mild pulmonary HTN. He is planned for stress testing tomorrow with further cardiology follow up. Following further discussion with patient and social work case manager/pharmacy, copay for DOACs is expensive. Discussed options with patient at bedside today for DOACs or coumadin with bridging options. He understands he may pay for DOACs ( he may check with insurance company regarding deductible) or transition to coumadin with lovenox bridge or in heparin gtt bridge. Recommend continued discussion with social work case manager for assistance and payment options. Appreciate assistance of primary team/ social work case manager in transition to AC therapy for home once cleared from cardiac standpoint. His symptoms are slowly improving. We discussed the general course and management of PE. He understands bleeding s/s side effects of AC and when to call clinic/present to ER. Patient was given an appointment card with follow up appointment with Dr. Panda. Qualifiers: Pulmonary embolism type: other Chronicity: acute Acute cor pulmonale presence: without acute cor pulmonale Qualified Code(s): I26.99 - Other pulmonary embolism without acute cor pulmonale Oncology: Subj Interval history: Mr. Matias is feeling well. Family at bedside. His respiratory symptoms are improving, he is still needing O2 per nasal cannula. He is planned for stress test tomorrow, stress was not done today as originally planned. - Constitutional Vitals: Vital Signs Temp Pulse Resp BP Pulse Ox 08/09/17 11:20 97.4 F L 68 17 114/71 97 08/09/17 07:17 97.6 F 78 17 112/73 96 08/09/17 05:05 97.6 F 67 18 95/57 98 08/09/17 00:43 97.3 F L 74 18 94/62 96 08/08/17 19:56 97.9 F 78 18 107/56 96 08/08/17 17:07 97.8 F 82 16 100/65 96 Intake and Output 08/08/17 08/09/17 08/09/17 23:59 07:59 15:59 Intake Total 300 / 300 75 / 75 755 / 755 Output Total 425 / 425 590 / 590 300 / 300 Balance -125 / -125 -515 / -515 455 / 455 Intake: IV Fluids 300 / 300 75 / 75 275 / 275 Heparin 25,000 UNIT/500 ML D5W 300 / 300 75 / 75 275 / 275 25,000 unit In 500 ml @ 14 UNIT /KG/HR 36.451 mls/hr IVC . [id number] [facility] Rx#:[id number] Oral 0 / 0 0 / 0 480 / 480 Output: Urine 425 / 425 590 / 590 300 / 300 Other: Meal Lunch Percent of Meal Consumed 100% Weight 131.5 kg Blood Glucose* 146 132 177 Patient Weight 08/09/17 23:59 Weight 131.5 kg General appearance: cooperative, no acute distress, no febrile - Head Head exam: Present: atraumatic - ENT ENT exam: Present: mucous membranes moist - Respiratory Respiratory exam: Present: CTAB. Absent: respiratory distress - Cardiovascular Cardiovascular exam: Present: RRR, +S1, +S2 - GI/Abdominal GI/Abdominal exam: Present: normal bowel sounds, soft. Absent: tenderness - Extremities Exam Extremities exam: Present: normal inspection. Absent: calf tenderness - Neurological Exam Neurological exam: Present: alert, oriented X3, no focal deficits, strengths equal and symetr throughout - Psychiatric Psychiatric exam: Present: normal affect, normal mood Oncology: Obj Data - Labs CBC & Chem 7: 08/11/17 05:30 08/11/17 05:30 - Impressions Impressions Echocardiogram 08/08/17 09:30 Impressions: LVEF 55%. Not all LV wall segments are well visualized. Mild left ventricular diastolic dysfunction. RV is dilated with mild reduction in function. Mild tricuspid regurgitation. No pulmonary hypertension by TR gradient. IVC is not well visualized. Left Ventricular Wall Motion: Rest Echo Findings The mid inferior lateral and basal inferior lateral [place] were not visualized. All other wall segments showed normal motion. Findings: Study Quality * Technically sub-optimal due to body habitus. ECG Findings * Normal sinus rhythm. Left Ventricle * Mild left ventricular diastolic dysfunction. * LVEF 55%. * Normal LV chamber size and wall thickness. Right Ventricle * RV is dilated with mild reduction in function. Left Atrium * Normal left atrial size. Right Atrium * RA is mild-moderately dilated. Aortic Valve * No aortic regurgitation. * Aortic valve not well visualized. * No aortic stenosis. Mitral Valve * No mitral regurgitation. * Normal mitral valve structure. * No mitral stenosis. Tricuspid Valve * Normal tricuspid valve structure. * Mild tricuspid regurgitation. Pulmonic Valve * Pulmonic valve is not well visualized. * No pulmonic stenosis. * No pulmonic regurgitation. Pulmonary Artery * Pulmonary artery not well visualized. Aorta * Not well visualized. Pericardium * There is no pericardial effusion present. Interatrial Septum * No evidence of PFO by color Doppler. IVC * The IVC is not well evaluated. - ABG Interpretation ABG results: ABG ABG pH 7.41 pH Units (7.32-7.45) 08/07/17 17:36 ABG pCO2 34 mmHg (35-45) L 08/07/17 17:36 ABG pO2 72 mmHg (85-104) L 08/07/17 17:36 ABG O2 Saturation 95 % (95-98) 08/07/17 17:36 PT/INR, D-dimer PT 13.3 Seconds (9.4-12.1) H 08/07/17 15:54 D-Dimer 1761 ng/mLFEU (0-500) H 08/07/17 15:54 Consult Discharge Plan - Plan Referrals: [facility] [Provider Group] (Please call the office sunday to schedule a hospital follow up in 2 weeks for abnormal stress test. Thank you!) Stefani Hutchison CNP [Partnered Physician] - (Please call your PCP on Sunday to schedule an appointment. Web request has been sent over on 08/11/17) Ana Altamirano CNP [Advanced Practice Nurse] - (Please call Ana Altamirano's [employer] office on Sunday to get your appointment date and time. Thank you!) Prescriptions: Rivaroxaban [Xarelto] 1 dose PO AD 30 Days pack
--- NOTE | 2017-08-09 15:20 | Internal Med Progress Note ---
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 O2 supplementation as needed B/L LE doppler negative for DVT Qualifiers: Pulmonary embolism type: other Chronicity: acute Acute cor pulmonale presence: without acute cor pulmonale Qualified Code(s): I26.99 - Other pulmonary embolism without acute cor pulmonale (3) Diastolic CHF, chronic Current Visit: Yes Status: Chronic Assessment and plan: not in acute exacerbation continue home medications (4) Hyperlipidemia Current Visit: Yes Status: Chronic Assessment and plan: continue home statin dose Qualifiers: Hyperlipidemia type: pure hypercholesterolemia Qualified Code(s): E78.00 - Pure hypercholesterolemia, unspecified; E78.0 - Pure hypercholesterolemia (5) Hypertension Current Visit: Yes Status: Chronic Assessment and plan: BP within acceptable range continue home meds Qualifiers: Hypertension type: essential hypertension Qualified Code(s): I10 - Essential (primary) hypertension (6) DVT prophylaxis Current Visit: No Status: Acute Assessment and plan: on heparin gtt (7) Diabetes mellitus type II, non insulin dependent Current Visit: No Status: Chronic Assessment and plan: hold oral antihyperglycemic agents continue sliding scale insulin algorithm monitor FS and BG ADA diet (8) Morbid obesity with BMI of 40.0-44.9, adult Current Visit: Yes Status: Chronic - Time Spent With Patient Total time spent is greater than 50% in coordination of care (as documented) at patient's floor/unit and/or counseling patient: - Subjective Interval history: Pt seen and examined with family present at bedside. Oncology and cardiology evaluation appreciated pt scheduled for nuclear stress test in am(08/10/17) continue heparin gtt at this time. - Constitutional Vitals: Temp Pulse Resp BP Pulse Ox 97.4 F L 68 17 114/71 97 08/09/17 11:20 08/09/17 11:20 08/09/17 11:20 08/09/17 11:20 04/12/18 11:20 General appearance: Present: cooperative, A&O X 3, morbidly obese, pleasant, no acute distress - Head Head exam: Present: atraumatic, normocephalic - Eye Eye exam: Present: conjuntiva pink, sclera anicteric - Respiratory Respiratory exam: Present: CTAB. Absent: accessory muscle use, rales, rhonchi, wheezes - Cardiovascular Cardiovascular exam: Present: RRR, +S1, +S2. Absent: diastolic murmur, gallop, rubs, systolic murmur - GI/Abdominal GI/Abdominal exam: Present: normal bowel sounds, soft, no peritoneal signs. Absent: distended, tenderness - Extremities Exam Extremities exam: Present: warm, radial pulses palpable and symmetrical. Absent : calf tenderness, tenderness - Neurological Exam Neurological exam: Present: oriented X3 Internal Medicine: Result - Labs CBC & Chem 7: 08/09/17 00:13 08/09/17 00:13 Labs: Short CBC 08/09/17 Range/Units 00:13 WBC 11.4 H (4.3-11.1) K/mcL Hgb 14.3 (12.9-16.9) g/dL Hct 43.4 (37.5-50.1) % Plt Count 233 (140-400) K/mcL Neutrophils # 6.4 (1.6-8.9) K/mcL BMP 08/09/17 00:13 Sodium 138 Potassium 4.2 Chloride 105 Carbon Dioxide 26 BUN 19 Creatinine 1.00 Glucose 108 H Calcium 8.8 - ABG Interpretation ABG results: ABG ABG pH 7.41 pH Units (7.32-7.45) 08/07/17 17:36 ABG pCO2 34 mmHg (35-45) L 08/07/17 17:36 ABG pO2 72 mmHg (85-104) L 08/07/17 17:36 ABG O2 Saturation 95 % (95-98) 08/07/17 17:36 PT/INR, D-dimer PT 13.3 Seconds (9.4-12.1) H 08/07/17 15:54 D-Dimer 1761 ng/mLFEU (0-500) H 08/07/17 15:54 - Impressions Impressions Echocardiogram 08/08/17 09:30 Impressions: LVEF 55%. Not all LV wall segments are well visualized. Mild left ventricular diastolic dysfunction. RV is dilated with mild reduction in function. Mild tricuspid regurgitation. No pulmonary hypertension by TR gradient. IVC is not well visualized. Left Ventricular Wall Motion: Rest Echo Findings The mid inferior lateral and basal inferior lateral [place] were not visualized. All other wall segments showed normal motion. Findings: Study Quality * Technically sub-optimal due to body habitus. ECG Findings * Normal sinus rhythm. Left Ventricle * Mild left ventricular diastolic dysfunction. * LVEF 55%. * Normal LV chamber size and wall thickness. Right Ventricle * RV is dilated with mild reduction in function. Left Atrium * Normal left atrial size. Right Atrium * RA is mild-moderately dilated. Aortic Valve * No aortic regurgitation. * Aortic valve not well visualized. * No aortic stenosis. Mitral Valve * No mitral regurgitation. * Normal mitral valve structure. * No mitral stenosis. Tricuspid Valve * Normal tricuspid valve structure. * Mild tricuspid regurgitation. Pulmonic Valve * Pulmonic valve is not well visualized. * No pulmonic stenosis. * No pulmonic regurgitation. Pulmonary Artery * Pulmonary artery not well visualized. Aorta * Not well visualized. Pericardium * There is no pericardial effusion present. Interatrial Septum * No evidence of PFO by color Doppler. IVC * The IVC is not well evaluated. - VTE Documentation of Mechanical Device: Graduated compression elastic hosiery Consult Discharge Plan - Plan Referrals: Stefani Hutchison CNP [Partnered Physician] - 08/10/17 10:35 am
--- NOTE | 2017-08-09 17:00 | Electrocardiograph Report ---
[address] [place] [address] Test Date: 2017-08-07 Pat Name: Jerome Matias Department: 104 Room: 2A35 Gender: M Secondary Social Studies Teacher: KAY : 1950 Requested By: Nilton Bunch Order Number: [id number] Reading MD: Alfonso Wright Measurements Intervals [place] Rate: 129 P: 71 RI: 168 QRS: -84 QRSD: 94 T: 60 QT: 285 QTc: 361 Interpretive Statements SINUS TACHYCARDIA MARKED LEFT AXIS DEVIATION LOW QRS VOLTAGE POSSIBLE ANTERIOR MYOCARDIAL INFARCTION, OF INDETERMINATE AGE Electronically Signed On 08-09-2017 16:59:03 EDT by Alfonso Wright
[2017-08-10] MEDS: Heparin 25,000 UNIT/500 ML D5W 25,000 UNIT/500 ML BAG IVC SCH ×2 (03:50→17:30)
[2017-08-10 05:34] LABS: Basophils % 0.4 %; Eosinophils # 0.3 K/mcL (0.0-0.6); Eosinophils % 2.7 %; Hemoglobin 15.1 g/dL (12.9-16.9); Immature Granulocytes % 0.4 % (0-4); Lymphocytes # 2.2 K/mcL (0.6-4.6); Lymphocytes % 23.2 %; Mean Corpuscular HGB Conc 33.6 g/dL (31.6-35.5); Mean Corpuscular Hemoglobin 29.7 pg (28.0-33.3); Mean Corpuscular Volume 88.6 fL (83.0-100.0); Mean Platelet Volume 10.8 fL (9.4-12.4); Monocytes # 0.6 K/mcL (0.0-1.3); Monocytes % 6.7 %; Neutrophils # 6.4 K/mcL (1.6-8.9); Platelet Count 226 K/mcL (140-400); Red Blood Count 5.08 M/mcL (4.19-5.50); Red Cell Distribution Width 13.4 % (11.5-14.5); Segmented Neutrophils % 66.6 %
[2017-08-10 06:01] LABS: BUN/Creatinine Ratio 15 (6-26); Blood Urea Nitrogen 15 mg/dL (8-23); Calcium 8.9 mg/dL (8.6-10.3); Carbon Dioxide 25 mEq/L (23-29); Chloride 106 mEq/L (98-107); Glucose 142 mg/dL (70-105); Magnesium 1.9 mg/dL (1.6-2.6); Osmolality,Calculated 289 (280-300); Phosphorous 3.2 mg/dL (2.7-4.5); Potassium 4.2 mEq/L (3.5-5.1); Sodium 138 mEq/L (136-145); eGFR For African Americans > 60 (> 60); eGFR For Non-African Americans > 60 (> 60)
[2017-08-10] MEDS: Insulin LISPRO 300 UNITS/3 ML VIAL SQ SCH ×4 (08:00→21:54)
[2017-08-10] MEDS: Aspirin Enteric Coated 325 MG Tablet PO SCH (08:43)
[2017-08-10] MEDS: Lisinopril 20 MG TABLET PO SCH (08:43)
--- NOTE | 2017-08-10 10:02 | Internal Med Progress Note ---
Date of Encounter: 08/10/17 Time of Encounter: 10:00 - Assessment and plan (1) Pulmonary embolism Current Visit: Yes Status: Acute Assessment and plan: Continue heparin drip for now until we figure out exactly what were going to discharge him on for anticoagulation. Oncology is following her okay with Xarelto. Patient does have an issues with his insurance not covering much anticoagulation. Echocardiogram noted with mild ventricular diastolic dysfunction. RV is dilated with mild reduction in function. LVEF 55%. Patient is on room air. B/L LE doppler negative for DVT Qualifiers: Pulmonary embolism type: other Chronicity: acute Acute cor pulmonale presence: without acute cor pulmonale Qualified Code(s): I26.99 - Other pulmonary embolism without acute cor pulmonale (2) Elevated troponin Current Visit: Yes Status: Acute Assessment and plan: Cardiology evaluation appreciated. Patient is planned a stress test this morning. (3) Diabetes mellitus type II, non insulin dependent Current Visit: No Status: Chronic Assessment and plan: Insulin size scale. Accu-Cheks. (4) Hyperlipidemia Current Visit: Yes Status: Chronic Assessment and plan: continue home statin dose Qualifiers: Hyperlipidemia type: pure hypercholesterolemia Qualified Code(s): E78.00 - Pure hypercholesterolemia, unspecified; E78.0 - Pure hypercholesterolemia (5) Hypertension Current Visit: Yes Status: Chronic Assessment and plan: BP within acceptable range continue home meds Qualifiers: Hypertension type: essential hypertension Qualified Code(s): I10 - Essential (primary) hypertension (6) Diastolic CHF, chronic Current Visit: Yes Status: Chronic Assessment and plan: not in acute exacerbation continue home medications (7) Morbid obesity with BMI of 40.0-44.9, adult Current Visit: Yes Status: Chronic Assessment and plan: Counseled (8) DVT prophylaxis Current Visit: No Status: Acute Assessment and plan: on heparin gtt - Time Spent With Patient Total time spent is greater than 50% in coordination of care (as documented) at patient's floor/unit and/or counseling patient: - Subjective Interval history: Patient was seen and examined. Afebrile. No acute events. Plan for stress test today for elevated troponin. We will have issues with anticoagulation pricing. Patient is admitted with bilateral PE. Currently on room air. - Constitutional Vitals: Temp Pulse Resp BP Pulse Ox 97.9 F 69 18 126/74 93 08/10/17 07:24 08/10/17 07:24 08/10/17 07:24 08/10/17 07:24 08/10/17 07:24 General appearance: Present: cooperative, A&O X 3, morbidly obese, pleasant, no acute distress Exam: GEN: NAD CVS: RRR. S1, S2, No m/r/g RESP: CTAB ABD: Soft, NT, ND, +BS EXT: No edema. 2+ DP. No rashes NEURO: Nonfocal Internal Medicine: Result - Labs CBC & Chem 7: 08/10/17 05:05 08/10/17 05:05 Labs: Short CBC 08/10/17 Range/Units 05:05 WBC 9.6 (4.3-11.1) K/mcL Hgb 15.1 (12.9-16.9) g/dL Hct 45.0 (37.5-50.1) % Plt Count 226 (140-400) K/mcL Neutrophils # 6.4 (1.6-8.9) K/mcL BMP 08/10/17 05:05 Sodium 138 Potassium 4.2 Chloride 106 Carbon Dioxide 25 BUN 15 Creatinine 0.97 Glucose 142 H Calcium 8.9 - ABG Interpretation ABG results: ABG ABG pH 7.41 pH Units (7.32-7.45) 08/07/17 17:36 ABG pCO2 34 mmHg (35-45) L 08/07/17 17:36 ABG pO2 72 mmHg (85-104) L 08/07/17 17:36 ABG O2 Saturation 95 % (95-98) 08/07/17 17:36 PT/INR, D-dimer PT 13.3 Seconds (9.4-12.1) H 08/07/17 15:54 D-Dimer 1761 ng/mLFEU (0-500) H 08/07/17 15:54 - VTE Documentation of Mechanical Device: Graduated compression elastic hosiery Consult Discharge Plan - Plan Referrals: Stefani Hutchison CNP [Partnered Physician] - 08/10/17 10:35 am
--- NOTE | 2017-08-10 10:27 | Cardiology Progress Note ---
<Efra Jones Eliza - Last Filed: 08/10/17 15:33> Date of Encounter: 08/10/17 Time of Encounter: 09:40 Assessment and Plan (1) Elevated troponin Status: Acute CTA shows bilateral PE. No CP or dyspnea now. Trop: 0.14, 0.58. 0.61, and 0.33 - now downtrending, likely demand ischemia secondary to PE EKG shows tachycardia with no ST changes TTE in 2016: LVEF 55% with normal LV function, moderate diastolic dysfunction, no valvular disease TTE: LVEF 60-65%, RV dilated with normal function, mild-moderate MR and TR, mild pulmonary HTN Pt has significant risk factors for CAD (extensive PVD, HTN, DM) - need to wait one more day for stress test due to PE Stress test due to cardiac risk factors - further recommendations pending Stress test (2) Pulmonary embolism Status: Acute Chest pain and dyspnea secondary to bilateral PE On heparin drip to transition to anticoagulation - possibly Xarelto per Hem/Onc pending insurance coverage Chest pain now resolved Qualifiers: Pulmonary embolism type: other Chronicity: acute Acute cor pulmonale presence: without acute cor pulmonale Qualified Code(s): I26.99 - Other pulmonary embolism without acute cor pulmonale (3) Hyperlipidemia Status: Chronic Continue statin Qualifiers: Hyperlipidemia type: pure hypercholesterolemia Qualified Code(s): E78.00 - Pure hypercholesterolemia, unspecified; E78.0 - Pure hypercholesterolemia (4) Hypertension Status: Chronic Continue lisinopril Qualifiers: Hypertension type: essential hypertension Qualified Code(s): I10 - Essential (primary) hypertension (5) Diastolic CHF, chronic Status: Chronic Well compensated Diastolic CHF - no evidence of exacerbation, mild bilateral edema, no crackles on exam, no JVD CXR shows no acute process, no pleural effusions Previous EF 50% with moderate diastolic dysfunction TTE: LVEF 60-65% with mild diastolic dysfunction Continue ACEI and ASA (6) MINA (obstructive sleep apnea) Status: Acute Has been compliant with CPAP at night Discussion w patient/family: The assessment and plan as outlined above was discussed with the patient and/or family members who expressed understanding and agreement. All questions were answered. Thank you for involving us in the care of your patient. Please call with any questions. Subjective Principal diagnosis: Bilateral PE Interval history: Pt doing well. Denies chest pain, dyspnea, palpitations, or LE edema. Denies other complaints. Objective Vital Signs, Last 4 Hours Temp Pulse Resp BP Pulse Ox 08/10/17 07:24 97.9 F 69 18 126/74 93 General: Conversant, No Apparent Distress HEENT: Atraumatic, Normocephaly, Mucus Membranes Moist Neck: No JVD, Normal carotid pulses Cardiac: Reg Rate and Rhythm, Normal S1 and S2, No Murmur Lungs: Normal Breath Sounds, No Wheeze, Rales, Rhonchi Neuro: Alert and responsive, No focal deficits noted Abdomen: Soft, Non-Tender Skin: No rashes noted on visualized skin Musculoskeletal: No Chest Wall Tenderness Extremities: No Clubbing, No Cyanosis, Normal Pulses, Other (Mild edema bilaterally) Results 08/10/17 05:05 08/10/17 05:05 Lab Results 08/09/17 08/09/17 08/10/17 15:31 22:40 05:05 WBC 9.6 Hgb 15.1 Hct 45.0 Plt Count 226 APTT 55.8 H 94.4 H D Sodium Potassium Chloride Carbon Dioxide BUN Creatinine Glucose Calcium Magnesium 08/10/17 08/10/17 05:05 05:05 WBC Hgb Hct Plt Count APTT 72.1 H Sodium 138 Potassium 4.2 Chloride 106 Carbon Dioxide 25 BUN 15 Creatinine 0.97 Glucose 142 H Calcium 8.9 Magnesium 1.9 - VTE Documentation of Mechanical Device: Graduated compression elastic hosiery Consult Discharge Plan - Plan Referrals: [facility] [Provider Group] (Please call the office sunday morning to schedule a hospital follow up in 2 weeks for abnormal stress test. Thank you!) Stefani Hutchison CNP [Partnered Physician] - (Please call your PCP on Sunday to schedule an appointment. Web request has been sent over on 08/11/17) Ana Altamirano CNP [Advanced Practice Nurse] - (Please call Ana Altamirano's [employer] office on Sunday to get your appointment date and time. Thank you!) Prescriptions: Rivaroxaban [Xarelto] 1 dose PO AD 30 Days pack <Jackson Kraft - Last Filed: 08/11/17 17:14> Date of Encounter: 08/10/17 Time of Encounter: 10:30 Assessment and Plan Discussion w patient/family: The assessment and plan as outlined above was discussed with the patient and/or family members who expressed understanding and agreement. All questions were answered. Thank you for involving us in the care of your patient. Please call with any questions. Results 08/11/17 05:30 08/11/17 05:30 Lab Results 08/11/17 04 05:30 05:30 WBC 10.6 Hgb 15.6 Hct 46.0 Plt Count 240 Sodium 140 Potassium 4.1 Chloride 106 Carbon Dioxide 26 BUN 13 Creatinine 0.93 Glucose 144 H Calcium 8.8 Magnesium 1.8 - Attending Attestation I examined this patient and my medical decision-making was reviewed with the Resident Physician. I agree with the documented findings, disposition and treatment plan as described except to the extent set forth below. CC chest pain Pt reports chest pain has resolved. He is ambulatory in room without chest pain , pressure or shortness of breath. He reports has mild pain in left calf with ambulation. PMH: reviewed, PE: pt seen and examined, chart reviewed, agree with physical findings IMP/Plan 1. Chest pain: chest pain most consistent with PE, has resolved, now ambulatory without complaints 2. Elevated troponin: unclear signifcance in light of PE, hx [place] 1998, will order stress imaging before discharge, further recomendations pending cardiac imaging, 3. PE: bilat PE, on Xaralto, tolerating well.
--- NOTE | 2017-08-10 10:38 | Discharge Summary ---
- NOTES TO OUTPATIENT PROVIDER Notes to Outpatient Provider: Patient was started on Xarelto despite its high miller. We checked for prices rather anticoagulation and the role pricy for him as well. He is willing to pay out of pocket for Xarelto for now. I stressed to him the importance of not skipping get dose if is committing to being on Xarelto. He will follow-up with his PCP and hematology as well. Orders not resulted at time of discharge: Pending orders 08/10/17 10:01 NM kale perf SPECT multi [NM] Routine SP pharm nuclear stress Routine 08/10/17 12:00 PTT [Activated Partial Thrombo Time] [COAG] Timed 08/11/17 04:00 BMP [Basic Metabolic Panel] AM 0400 Complete Blood Count [HEME] AM 0400 Magnesium AM 0400 Date of Encounter: 08/11/17 Time of Encounter: 10:36 - Discharge Diagnosis (1) Pulmonary embolism Priority: Primary Status: Acute Qualifiers: Pulmonary embolism type: other Chronicity: acute Acute cor pulmonale presence: without acute cor pulmonale Qualified Code(s): I26.99 - Other pulmonary embolism without acute cor pulmonale (2) Elevated troponin Priority: Primary Status: Acute (3) Diabetes mellitus type II, non insulin dependent Priority: Secondary Status: Chronic (4) Hyperlipidemia Priority: Secondary Status: Chronic Qualifiers: Hyperlipidemia type: pure hypercholesterolemia Qualified Code(s): E78.00 - Pure hypercholesterolemia, unspecified; E78.0 - Pure hypercholesterolemia (5) Hypertension Priority: Secondary Status: Chronic Qualifiers: Hypertension type: essential hypertension Qualified Code(s): I10 - Essential (primary) hypertension (6) Diastolic CHF, chronic Priority: Secondary Status: Chronic (7) Morbid obesity with BMI of 40.0-44.9, adult Priority: Secondary Status: Chronic Hospital course: Mr. Matias is a 67 year old male with history of diabetes, hypertension, morbid obesity, TIA, high cholesterol, and vascular disease and thyroid disease. He presented to the emergency room with 3 hours of acute sudden onset of shortness of breath and chest pain that persisted until he came into the emergency room. Work up revealed elevated trops of .14 that went up to .58 then .61. CTA showed b/l pulm emboli. He was started on heparin drip. Echo was done and showed LVEF 60-65%, RV dilated with normal function, mild-moderate MR and TR , mild pulmonary HTN. Cardiology were consulted due to the degree of trops elevation and chest pain complaints. No EKG ST or T wave abnormalities noted. They recommended a stress test which was abnormal. The patient had to undergo a 2 day stress test which made him upset despite our efforts to explain to him the reasons for that. He was recommended a [facility] but wanted to leave. Dr. Kraft from Cardiology spoke to the patient and eventually they agreed that the patient can be discharged and return to their office in 1-2 weeks for a follow up. He was eventually discharged on Xarelto for anticoagulation. Did not require O2. - Time Spent with Patient Total time spent providing and/or coordinating discharge services: Greater than 30 minutes - Discharge Medications Prescriptions: Rivaroxaban [Xarelto] 1 dose PO AD 30 Days pack Home Medications: Aspirin Enteric Coated [Aspirin EC] 325 mg PO DAILY 09/12/15 [History] Lisinopril [Zestril] 20 mg PO DAILY 09/12/15 [History] Lovastatin 10 mg PO DAILY 09/12/15 [History] Meloxicam [Mobic] 15 mg PO DAILY 09/12/15 [History] Zolpidem [Ambien] 10 mg PO HS 09/12/15 [History] glyBURIDE [GlyBURIDE] 2.5 mg PO DAILY 09/12/15 [History] metFORMIN [Glucophage] 1,000 mg PO BIDWM 09/12/15 [History] Rivaroxaban [Xarelto] 1 dose PO AD 30 Days pack 08/10/17 [Rx] Allergies/Adverse Reactions: 3 Allergy/AdvReac Type Severity Reaction Status Date / Time No Known Allergies Allergy Verified 01/12/16 08:23 Date of admission: 08/07/17 17:52 Primary care physician: Aguilar Waters MD Consults: 08/08/17 09:30 Consult to Oncology Hematology [CONS] Routine Consulting Provider: Ana Altamirano Reason for Consult: bilateral PE Call Completed: Yes 08/08/17 18:06 Consult to Mesh Cutter [CONS] Routine Reason for SW Consult: Good evening, Can you please help to assess insurance coverage for Xarelto? Thank you, Ana - Constitutional Vitals: Temp Pulse Resp BP Pulse Ox 97.9 F 69 18 126/74 93 04/13/18 07:24 08/10/17 07:24 08/10/17 07:24 08/10/17 07:24 08/10/17 07:24 General appearance: Present: cooperative, A&O X 3, morbidly obese, pleasant, no acute distress Exam: GEN: NAD CVS: RRR. S1, S2, No m/r/g RESP: CTAB ABD: Soft, NT, ND, +BS EXT: No edema. 2+ DP. No rashes NEURO: Nonfocal - Patient Status Disposition: Home, Self-Care Condition: Fair Overall status at discharge: patient is progressing back to baseline - Discharge Instructions Follow Up With: [facility] [Provider Group] (Please call the office sunday to schedule a hospital follow up in 2 weeks for abnormal stress test. Thank you!) Stefani Hutchison [employer] [Partnered Physician] - (Please call your PCP on Sunday to schedule an appointment. Web request has been sent over on 08/11/17) Ana Altamirano, [employer] [Advanced Practice Nurse] - (Please call Ana Altamirano's [employer] office on Sunday to get your appointment date and time. Thank you!) - Diet and Activity Activity: increase activity as tolerated Diet: regular diet - VTE Documentation of Mechanical Device: Graduated compression elastic hosiery
[2017-08-10] MEDS ORDERED: Regadenoson 0.4 MG/5 ML SYRINGE IVP ONE (12:23)
[2017-08-11 05:51] LABS: Basophils % 0.4 %; Eosinophils # 0.3 K/mcL (0.0-0.6); Eosinophils % 2.4 %; Hemoglobin 15.6 g/dL (12.9-16.9); Immature Granulocytes % 0.5 % (0-4); Lymphocytes # 2.5 K/mcL (0.6-4.6); Lymphocytes % 23.9 %; Mean Corpuscular HGB Conc 33.9 g/dL (31.6-35.5); Mean Corpuscular Hemoglobin 30.3 pg (28.0-33.3); Mean Corpuscular Volume 89.3 fL (83.0-100.0); Mean Platelet Volume 10.6 fL (9.4-12.4); Monocytes # 0.6 K/mcL (0.0-1.3); Neutrophils # 7.1 K/mcL (1.6-8.9); Platelet Count 240 K/mcL (140-400); Red Blood Count 5.15 M/mcL (4.19-5.50); Red Cell Distribution Width 13.5 % (11.5-14.5); Segmented Neutrophils % 66.8 %
[2017-08-11 06:13] LABS: BUN/Creatinine Ratio 14 (6-26); Blood Urea Nitrogen 13 mg/dL (8-23); Calcium 8.8 mg/dL (8.6-10.3); Carbon Dioxide 26 mEq/L (23-29); Chloride 106 mEq/L (98-107); Glucose 144 mg/dL (70-105); Magnesium 1.8 mg/dL (1.6-2.6); Osmolality,Calculated 293 (280-300); Potassium 4.1 mEq/L (3.5-5.1); Sodium 140 mEq/L (136-145); eGFR For African Americans > 60 (> 60); eGFR For Non-African Americans > 60 (> 60)
[2017-08-11] MEDS: Heparin 25,000 UNIT/500 ML D5W 25,000 UNIT/500 ML BAG IVC SCH (07:59)
--- NOTE | 2017-08-11 09:35 | Internal Med Progress Note ---
Date of Encounter: 08/11/17 Time of Encounter: 09:34 - Assessment and plan (1) Pulmonary embolism Current Visit: Yes Status: Acute Qualifiers: Pulmonary embolism type: other Chronicity: acute Acute cor pulmonale presence: without acute cor pulmonale Qualified Code(s): I26.99 - Other pulmonary embolism without acute cor pulmonale (2) Elevated troponin Current Visit: Yes Status: Acute (3) Diabetes mellitus type II, non insulin dependent Current Visit: No Status: Chronic (4) Hyperlipidemia Current Visit: Yes Status: Chronic Qualifiers: Hyperlipidemia type: pure hypercholesterolemia Qualified Code(s): E78.00 - Pure hypercholesterolemia, unspecified; E78.0 - Pure hypercholesterolemia (5) Hypertension Current Visit: Yes Status: Chronic Qualifiers: Hypertension type: essential hypertension Qualified Code(s): I10 - Essential (primary) hypertension (6) Diastolic CHF, chronic Current Visit: Yes Status: Chronic (7) Morbid obesity with BMI of 40.0-44.9, adult Current Visit: Yes Status: Chronic - Time Spent With Patient Total time spent is greater than 50% in coordination of care (as documented) at patient's floor/unit and/or counseling patient: - Subjective Interval history: Patient was seen and examined. Afebrile. No acute events. Awaiting stress test this morning. Patient is admitted with bilateral PE. Currently on room air. - Constitutional Vitals: Temp Pulse Resp BP Pulse Ox 98.1 F 69 18 119/72 93 08/11/17 07:24 08/11/17 07:24 08/11/17 07:24 08/11/17 07:24 08/11/17 07:24 General appearance: Present: cooperative, A&O X 3, morbidly obese, pleasant, no acute distress Exam: GEN: NAD CVS: RRR. S1, S2, No m/r/g RESP: CTAB ABD: Soft, NT, ND, +BS EXT: No edema. 2+ DP. No rashes NEURO: Nonfocal Internal Medicine: Result - Labs CBC & Chem 7: 08/11/17 05:30 08/11/17 05:30 Labs: Short CBC 08/11/17 Range/Units 05:30 WBC 10.6 (4.3-11.1) K/mcL Hgb 15.6 (12.9-16.9) g/dL Hct 46.0 (37.5-50.1) % Plt Count 240 (140-400) K/mcL Neutrophils # 7.1 (1.6-8.9) K/mcL BMP 08/11/17 05:30 Sodium 140 Potassium 4.1 Chloride 106 Carbon Dioxide 26 BUN 13 Creatinine 0.93 Glucose 144 H Calcium 8.8 - ABG Interpretation ABG results: ABG ABG pH 7.41 pH Units (7.32-7.45) 08/07/17 17:36 ABG pCO2 34 mmHg (35-45) L 08/07/17 17:36 ABG pO2 72 mmHg (85-104) L 08/07/17 17:36 ABG O2 Saturation 95 % (95-98) 08/07/17 17:36 PT/INR, D-dimer PT 13.3 Seconds (9.4-12.1) H 08/07/17 15:54 D-Dimer 1761 ng/mLFEU (0-500) H 08/07/17 15:54 - VTE Documentation of Mechanical Device: Graduated compression elastic hosiery Consult Discharge Plan - Plan Referrals: Stefani Hutchison CNP [Partnered Physician] - 08/10/17 10:35 am Ana Altamirano CNP [Advanced Practice Nurse] - (2 weeks) Prescriptions: Rivaroxaban [Xarelto] 1 dose PO AD 30 Days pack
[2017-08-11] MEDS ORDERED: *HR* Rivaroxaban 15 MG TABLET PO ONE (09:46)
[2017-08-11] MEDS: Aspirin Enteric Coated 325 MG Tablet PO SCH (09:53)
[2017-08-11] MEDS: Lisinopril 20 MG TABLET PO SCH (09:53)
[2017-08-11] MEDS: Insulin LISPRO 300 UNITS/3 ML VIAL SQ SCH ×2 (09:54→11:57)
[2017-08-11 11:11] VITALS: BP 138/84
--- NOTE | 2017-08-11 17:20 | Event Note ---
Date of Encounter: 08/11/17 Time of Encounter: 14:15 - Cardiology Event Note Informed pt of stress results, small area of partially reversible periinfarct ischemia. Discussed at length with patient, to be absolutely sure stress finding as an artifact, pt declines. Discussed signs and symptoms of myocardial ischemia, need for close follow up, HE will schedule follow up in office in two weeks, sooner if symptoms change.
== END 2017-08-11 14:59 | disposition home or self-care (01) | DRG 176 ==
LOC: EMEROO 15:12 → 2ANU 17:52
PROVIDERS: ADMIT Internal Medicine; ATTEND Internal Medicine

== ENCOUNTER 2018-11-15 09:39 | Observation (INO) ==
[2018-11-15] MEDS ORDERED: Ondansetron 4 MG/2 ML VIAL IVP ONE (09:53)
[2018-11-15] MEDS ORDERED: 0.9 % Sodium Chloride 1,000 ML IVC ONE (09:53)
[2018-11-15] MEDS ORDERED: *HR* FentaNYL (PF) 100 MCG/2 ML VIAL IVP ONE (09:53)
[2018-11-15 10:08] LABS: Bilirubin,Urine Moderate (Negative); Blood,Urine Large (Negative); Clarity,Urine Turbid (Clear); Glucose,Urine (UA) >=1000 mg/dL (Normal); Ketones,Urine Trace mg/dL (Negative); Leukocyte Esterase,Urine Moderate (Negative); Nitrite,Urine Positive (Negative); PH,Urine 5.5 pH Units (5.0-8.0); Protein,Urine 100 mg/dL (Neg-Trace); Specific Gravity,Urine 1.025 (1.010-1.025); Urobilinogen,Urine Normal (Normal)
[2018-11-15 10:09] LABS: Hyaline Casts,Urine None Seen per lpf (None-Few); Squamous Epithelial Cell,Urine Many per lpf (None-Few); WBC,Urine 15-30 per hpf (0-3)
[2018-11-15 10:12] LABS: Color,Urine Brown (Yellow)
[2018-11-15 10:12] LABS: Basophils # 0.1 K/mcL (0.0-0.2); Basophils % 0.4 %; Eosinophils # 0.1 K/mcL (0.0-0.6); Eosinophils % 0.5 %; Hematocrit 44.9 % (37.5-50.1); Hemoglobin 15.1 g/dL (12.9-16.9); Immature Granulocytes % 0.7 % (0-4); Lymphocytes # 2.4 K/mcL (0.6-4.6); Mean Corpuscular HGB Conc 33.6 g/dL (31.6-35.5); Mean Corpuscular Hemoglobin 30.6 pg (28.0-33.3); Mean Corpuscular Volume 90.9 fL (83.0-100.0); Mean Platelet Volume 9.9 fL (9.4-12.4); Monocytes # 0.7 K/mcL (0.0-1.3); Monocytes % 4.9 %; Neutrophils # 10.8 K/mcL (1.6-8.9); Platelet Count 308 K/mcL (140-400); Red Blood Count 4.94 M/mcL (4.19-5.50); Red Cell Distribution Width 13.8 % (11.5-14.5); Segmented Neutrophils % 76.5 %; White Blood Count 14.2 K/mcL (4.3-11.1)
[2018-11-15 10:16] LABS: INR 1.4; Prothrombin Time 16.3 Seconds (9.4-12.1)
[2018-11-15 10:19] LABS: Activated Partial Thrombo Time 36.3 Seconds (26.0-36.0)
[2018-11-15 10:22] LABS: Bacteria,Urine Few per hpf (None-Few); RBC,Urine TNTC per hpf (0-3)
[2018-11-15 10:31] LABS: Calcium 9.5 mg/dL (8.6-10.3); Potassium 4.5 mEq/L (3.5-5.1)
[2018-11-15] MEDS ORDERED: cefTRIAXone 1,000 MG in 0.9 % Sodium Chloride Mini Bag 100 ML IVPB ONE (11:08)
[2018-11-15] MEDS ORDERED: *HR* HYDROmorphone (PF) 1 MG/ML SYRINGE IVP ONE (11:08)
[2018-11-15] MEDS ORDERED: 0.9 % Sodium Chloride 1,000 ML IVC SCH ×2 (11:15→20:22)
[2018-11-15] MEDS ORDERED: Ondansetron 4 MG/2 ML VIAL IVP PRN ×2 (11:54→20:22)
[2018-11-15] MEDS ORDERED: Naloxone 0.4 MG/ML INJ IVP PRN ×2 (11:54→20:22)
[2018-11-15] MEDS ORDERED: *HR* Labetalol 20 MG/4 ML SYRINGE IVP ONE ×2 (11:58→20:22)
[2018-11-15] MEDS ORDERED: *HR* Labetalol 20 MG/4 ML SYRINGE IVP PRN ×2 (11:58→20:22)
[2018-11-15] MEDS: Insulin LISPRO 300 UNITS/3 ML VIAL SQ SCH ×2 (14:13→17:55)
[2018-11-15] MEDS ORDERED: Metoclopramide 10 MG/2 ML VIAL ONE (18:55)
[2018-11-15] MEDS ORDERED: Famotidine 20 MG/2 ML VIAL ONE (18:55)
[2018-11-16] MEDS: Insulin LISPRO 300 UNITS/3 ML VIAL SQ SCH ×2 (00:55→05:25)
[2018-11-16 03:30] LABS: BUN/Creatinine Ratio 17 (6-26); Blood Urea Nitrogen 20 mg/dL (8-23); Calcium 8.3 mg/dL (8.6-10.3); Carbon Dioxide 22 mEq/L (23-29); Chloride 107 mEq/L (98-107); Glucose 170 mg/dL (70-105); Osmolality,Calculated 291 (280-300); Potassium 4.3 mEq/L (3.5-5.1); Sodium 137 mEq/L (136-145); eGFR For African Americans > 60 (> 60); eGFR For Non-African Americans > 60 (> 60)
[2018-11-16 03:34] LABS: Basophils % 0.3 %; Eosinophils # 0.1 K/mcL (0.0-0.6); Eosinophils % 0.5 %; Immature Granulocytes % 0.4 % (0-4); Lymphocytes # 2.2 K/mcL (0.6-4.6); Lymphocytes % 17.6 %; Mean Corpuscular HGB Conc 33.1 g/dL (31.6-35.5); Mean Corpuscular Hemoglobin 30.2 pg (28.0-33.3); Mean Corpuscular Volume 91.3 fL (83.0-100.0); Mean Platelet Volume 10.1 fL (9.4-12.4); Monocytes % 7.5 %; Neutrophils # 9.4 K/mcL (1.6-8.9); Platelet Count 268 K/mcL (140-400); Red Blood Count 4.27 M/mcL (4.19-5.50); Red Cell Distribution Width 14.1 % (11.5-14.5); Segmented Neutrophils % 73.7 %; White Blood Count 12.7 K/mcL (4.3-11.1)
[2018-11-16 03:38] LABS: Hemoglobin 12.9 g/dL (12.9-16.9)
[2018-11-16 07:23] VITALS: BP 115/73
[2018-11-16] MEDS ORDERED: Aspirin Enteric Coated 81 MG Tablet PO SCH ×2 (09:00)
[2018-11-16] MEDS ORDERED: cefTRIAXone 1,000 MG in Water for inj. (sterile) 10 ML IVP SCH ×2 (09:00)
== END 2018-11-16 10:13 | disposition home or self-care (01) | DRG 854 ==
LOC: EMEROOARM 09:39 → 3ANU 09:39
PROVIDERS: ADMIT Student in an Organized Health Care Education/Training Program; ATTEND Student in an Organized Health Care Education/Training Program

== ENCOUNTER 2022-01-28 11:37 | Observation (INO) ==
[2022-01-28] MEDS ORDERED: *HR* OxyCODONE Immed Rel 5 MG TABLET PO ONE (13:46)
[2022-01-28 14:25] LABS: BUN/Creatinine Ratio 13 (6-26); Blood Urea Nitrogen 16 mg/dL (8-23); Calcium 9.4 mg/dL (8.6-10.3); Carbon Dioxide 24 mEq/L (23-29); Chloride 103 mEq/L (98-107); Glucose 232 mg/dL (70-105); Osmolality,Calculated 293 (280-300); Potassium 4.8 mEq/L (3.5-5.1); Sodium 137 mEq/L (136-145); Troponin I < 0.03 ng/mL (< 0.04)
[2022-01-28 14:33] LABS: Basophils % 0.4 %; Eosinophils # 0.2 K/mcL (0.0-0.6); Eosinophils % 1.7 %; Hematocrit 39.8 % (37.5-50.1); Hemoglobin 12.5 g/dL (12.9-16.9); Immature Granulocytes % 0.5 % (0-4); Lymphocytes # 1.8 K/mcL (0.6-4.6); Lymphocytes % 18.7 %; Mean Corpuscular HGB Conc 31.4 g/dL (31.6-35.5); Mean Corpuscular Hemoglobin 27.2 pg (28.0-33.3); Mean Corpuscular Volume 86.5 fL (83.0-100.0); Mean Platelet Volume 10.2 fL (9.4-12.4); Monocytes # 0.5 K/mcL (0.0-1.3); Monocytes % 5.6 %; Neutrophils # 6.9 K/mcL (1.6-8.9); Platelet Count 253 K/mcL (140-400); Red Cell Distribution Width 15.3 % (11.5-14.5); Segmented Neutrophils % 73.1 %; White Blood Count 9.5 K/mcL (4.3-11.1)
[2022-01-28] MEDS ORDERED: Amoxicillin 500 MG CAPSULE PO ONE (17:38)
[2022-01-28] MEDS ORDERED: Melatonin 3 MG TABLET PO PRN (18:13)
[2022-01-28] MEDS ORDERED: Mag Hydrox/Al Hydrox/Simeth 30 ML UDC PO PRN (18:13)
[2022-01-28] MEDS ORDERED: Naloxone 0.4 MG/ML INJ IVP PRN (18:13)
[2022-01-28] MEDS ORDERED: Ondansetron ODT 4 MG TAB.RAPDIS SL PRN (18:13)
[2022-01-28] MEDS ORDERED: MOM Conc 10 ML UD.LIQ PO PRN (18:13)
[2022-01-28] MEDS ORDERED: D5% in Water 1,000 ML IVC PRN (18:15)
[2022-01-28] MEDS ORDERED: Heparin 25,000UNIT/250ML 1/2NS 25,000 UNIT/250 ML IV.SOLN IVC SCH (18:15)
[2022-01-28] MEDS ORDERED: *HR* Dextrose 50 % in Water (Syg) 50 ML SYRINGE IVP PRN (18:15)
[2022-01-28] MEDS ORDERED: Dextrose Gel 15 GM/37.5 ML TUBE PO PRN ×2 (18:15)
[2022-01-28] MEDS ORDERED: *HR* OxyCODONE Immed Rel 5 MG TABLET PO PRN (18:16)
[2022-01-28 20:05] LABS: Heparin anti-factor XA UFH 0.23 IU/mL (0.30-0.70); INR 1.4; Prothrombin Time 16.1 Seconds (9.4-12.1)
[2022-01-28 20:08] LABS: Activated Partial Thrombo Time 33.4 Seconds (26.0-36.0)
[2022-01-28] MEDS: Insulin LISPRO 300 UNITS/3 ML VIAL SUBQ SCH ×2 (20:16→20:53)
[2022-01-29] MEDS: Ciprofloxacin/Dex *EAR* Susp 7.5 ML BOTTLE RIGHT EAR SCH ×3 (01:12→21:50)
[2022-01-29 02:54] LABS: Basophils % 0.4 %; Eosinophils # 0.2 K/mcL (0.0-0.6); Eosinophils % 1.7 %; Hematocrit 36.3 % (37.5-50.1); Hemoglobin 11.6 g/dL (12.9-16.9); Immature Granulocytes % 0.4 % (0-4); Lymphocytes # 2.8 K/mcL (0.6-4.6); Lymphocytes % 25.4 %; Mean Corpuscular Hemoglobin 27.4 pg (28.0-33.3); Mean Corpuscular Volume 85.6 fL (83.0-100.0); Mean Platelet Volume 9.8 fL (9.4-12.4); Monocytes # 0.9 K/mcL (0.0-1.3); Monocytes % 8.1 %; Neutrophils # 7.1 K/mcL (1.6-8.9); Platelet Count 252 K/mcL (140-400); Red Blood Count 4.24 M/mcL (4.19-5.50); Red Cell Distribution Width 15.2 % (11.5-14.5); White Blood Count 11.1 K/mcL (4.3-11.1)
[2022-01-29 03:12] LABS: Calcium 8.9 mg/dL (8.6-10.3); Potassium 4.3 mEq/L (3.5-5.1)
[2022-01-29] MEDS: *HR* OxyCODONE Immed Rel 5 MG TABLET PO PRN ×4 (03:49→21:50)
[2022-01-29] MEDS: Insulin LISPRO 300 UNITS/3 ML VIAL SUBQ SCH ×4 (07:30→21:05)
[2022-01-29] MEDS ORDERED: *HR* Heparin 5,000 UNIT/ML VIAL IVP PRN ×2 (08:45)
[2022-01-29] MEDS ORDERED: Heparin 25,000UNIT/250ML 1/2NS 25,000 UNIT/250 ML IV.SOLN IVC SCH (08:45)
[2022-01-29 08:50] LABS: Estimated Average Glucose 189 mg/dl; Hemoglobin A1C 8.2 %
[2022-01-29 09:32] LABS: Hematocrit 35.8 % (37.5-50.1); Hemoglobin 11.6 g/dL (12.9-16.9); Mean Corpuscular HGB Conc 32.4 g/dL (31.6-35.5); Mean Corpuscular Volume 86.3 fL (83.0-100.0); Mean Platelet Volume 9.6 fL (9.4-12.4); Platelet Count 222 K/mcL (140-400); Red Blood Count 4.15 M/mcL (4.19-5.50); Red Cell Distribution Width 15.2 % (11.5-14.5); White Blood Count 9.3 K/mcL (4.3-11.1)
[2022-01-29 09:40] LABS: Heparin anti-factor XA UFH 0.06 IU/mL (0.30-0.70)
[2022-01-29 09:41] LABS: INR 1.3; Prothrombin Time 14.5 Seconds (9.4-12.1)
[2022-01-29 09:46] LABS: Activated Partial Thrombo Time 31.6 Seconds (26.0-36.0)
[2022-01-29] MEDS: Heparin 25,000UNIT/250ML 1/2NS 25,000 UNIT/250 ML IV.SOLN IVC SCH ×2 (09:47→23:34)
[2022-01-29] MEDS: Aspirin Enteric Coated 81 MG Tablet PO SCH (09:51)
[2022-01-29] MEDS: lisinopriL 20 MG TABLET PO SCH (09:51)
[2022-01-30 00:39] LABS: Basophils % 0.3 %; Eosinophils # 0.3 K/mcL (0.0-0.6); Eosinophils % 2.3 %; Hemoglobin 11.7 g/dL (12.9-16.9); Immature Granulocytes % 0.4 % (0-4); Lymphocytes # 3.4 K/mcL (0.6-4.6); Lymphocytes % 27.6 %; Mean Corpuscular HGB Conc 32.5 g/dL (31.6-35.5); Mean Corpuscular Hemoglobin 27.8 pg (28.0-33.3); Mean Corpuscular Volume 85.5 fL (83.0-100.0); Mean Platelet Volume 9.6 fL (9.4-12.4); Monocytes % 7.8 %; Neutrophils # 7.6 K/mcL (1.6-8.9); Platelet Count 257 K/mcL (140-400); Red Blood Count 4.21 M/mcL (4.19-5.50); Red Cell Distribution Width 15.5 % (11.5-14.5); Segmented Neutrophils % 61.6 %; White Blood Count 12.4 K/mcL (4.3-11.1)
[2022-01-30 00:56] LABS: Calcium 8.8 mg/dL (8.6-10.3); Potassium 4.3 mEq/L (3.5-5.1)
[2022-01-30] MEDS: lisinopriL 20 MG TABLET PO SCH (08:06)
[2022-01-30] MEDS: Aspirin Enteric Coated 81 MG Tablet PO SCH (08:06)
[2022-01-30] MEDS: Ciprofloxacin/Dex *EAR* Susp 7.5 ML BOTTLE RIGHT EAR SCH ×2 (08:06→20:45)
[2022-01-30] MEDS ORDERED: CeFAZolin Syr 3,000MG/30 ML 3,000 MG/30 ML SYRINGE IVPB ONE (08:15)
[2022-01-30] MEDS: Insulin LISPRO 300 UNITS/3 ML VIAL SUBQ SCH ×4 (08:16→20:45)
[2022-01-30] MEDS ORDERED: Ropivacaine/PF 0.5% 30 ML VIAL ONE (08:19)
[2022-01-30] MEDS ORDERED: Ipratropium Neb 0.5 MG NEBULIZER IH PRN (08:20)
[2022-01-30] MEDS ORDERED: Acetaminophen IV 1,000 MG/100 ML BAG IVPB PRN (08:20)
[2022-01-30] MEDS ORDERED: *HR* FentaNYL (PF) 100 MCG/2 ML VIAL IVP PRN (08:20)
[2022-01-30] MEDS ORDERED: *HR* OxyCODONE Immed Rel 5 MG TABLET PO PRN (08:20)
[2022-01-30] MEDS ORDERED: *HR* HYDROmorphone PF 0.5 MG/0.5 ML SYRINGE IVP PRN (08:20)
[2022-01-30] MEDS ORDERED: Ondansetron 4 MG/2 ML VIAL IVP PRN (08:20)
[2022-01-30] MEDS ORDERED: *HR* Labetalol 20 MG/4 ML SYRINGE IVP PRN (08:20)
[2022-01-30] MEDS ORDERED: ROPIVACAINE/PF/NS 0.25% 1 EACH SYRINGE INTRAART ONE (08:20)
[2022-01-30] MEDS ORDERED: Albuterol 2.5 MG/3 ML NEBULIZER IH PRN (08:20)
[2022-01-30] MEDS: *HR* OxyCODONE Immed Rel 5 MG TABLET PO PRN (08:31)
[2022-01-30] MEDS ORDERED: *HR* Midazolam HCl 2 MG/2 ML VIAL ONE (09:15)
[2022-01-30] MEDS ORDERED: *HR* FentaNYL (PF) 100 MCG/2 ML VIAL ONE ×2 (09:16→09:34)
[2022-01-30] MEDS ORDERED: *HR* Propofol 200 MG/20 ML VIAL IVP ONE (09:31)
[2022-01-30] MEDS ORDERED: Lidocaine -MPF 2% 2 ML VIAL ONE (09:35)
[2022-01-30] MEDS ORDERED: *HR* Succinylcholine 200 MG/10 ML VIAL IVP ONE (09:36)
[2022-01-30] MEDS ORDERED: Acetaminophen IV 1,000 MG/100 ML BAG IVPB ONE (10:33)
[2022-01-30] MEDS ORDERED: Ondansetron 4 MG/2 ML VIAL ONE (10:36)
[2022-01-30] MEDS ORDERED: *HR* Phenylephrine 10 MG/ML VIAL ONE (11:13)
[2022-01-30] MEDS: Ringers Solution, Lactated 1,000 ML IVC SCH (11:43)
[2022-01-30] MEDS ORDERED: *HR* HYDROMORPHONE 2 MG/ML VIAL ONE (12:11)
[2022-01-31 05:13] LABS: Basophils % 0.1 %; Eosinophils % 0.1 %; Hematocrit 35.7 % (37.5-50.1); Hemoglobin 11.4 g/dL (12.9-16.9); Immature Granulocytes % 0.5 % (0-4); Lymphocytes # 1.7 K/mcL (0.6-4.6); Lymphocytes % 11.3 %; Mean Corpuscular HGB Conc 31.9 g/dL (31.6-35.5); Mean Corpuscular Hemoglobin 27.2 pg (28.0-33.3); Mean Corpuscular Volume 85.2 fL (83.0-100.0); Mean Platelet Volume 9.7 fL (9.4-12.4); Monocytes % 6.6 %; Neutrophils # 12.4 K/mcL (1.6-8.9); Platelet Count 280 K/mcL (140-400); Red Blood Count 4.19 M/mcL (4.19-5.50); Red Cell Distribution Width 14.9 % (11.5-14.5); Segmented Neutrophils % 81.4 %; White Blood Count 15.2 K/mcL (4.3-11.1)
[2022-01-31] MEDS: Aspirin Enteric Coated 81 MG Tablet PO SCH (09:02)
[2022-01-31] MEDS: lisinopriL 20 MG TABLET PO SCH (09:02)
[2022-01-31] MEDS: Ciprofloxacin/Dex *EAR* Susp 7.5 ML BOTTLE RIGHT EAR SCH ×2 (09:02→20:55)
[2022-01-31] MEDS: Insulin LISPRO 300 UNITS/3 ML VIAL SUBQ SCH ×4 (09:03→20:55)
[2022-01-31] MEDS: *HR* Rivaroxaban 10 MG TABLET PO SCH (17:05)
[2022-01-31] MEDS: Ringers Solution, Lactated 1,000 ML IVC SCH (19:12)
[2022-01-31] MEDS: *HR* OxyCODONE Immed Rel 5 MG TABLET PO PRN (20:55)
[2022-02-01] MEDS: Aspirin Enteric Coated 81 MG Tablet PO SCH (08:32)
[2022-02-01] MEDS: *HR* OxyCODONE Immed Rel 5 MG TABLET PO PRN ×2 (08:32→21:25)
[2022-02-01] MEDS: Insulin LISPRO 300 UNITS/3 ML VIAL SUBQ SCH ×4 (08:38→21:22)
[2022-02-01] MEDS: Ciprofloxacin/Dex *EAR* Susp 7.5 ML BOTTLE RIGHT EAR SCH ×2 (08:38→21:25)
[2022-02-01] MEDS: lisinopriL 20 MG TABLET PO SCH (08:40)
[2022-02-01] MEDS: CeFAZolin 2,000 MG/120 ML BAG IVPB SCH ×3 (10:24→23:59)
[2022-02-01] MEDS: Ringers Solution, Lactated 1,000 ML IVC SCH (10:24)
[2022-02-01] MEDS: *HR* Rivaroxaban 10 MG TABLET PO SCH (16:51)
[2022-02-02] MEDS: Insulin LISPRO 300 UNITS/3 ML VIAL SUBQ SCH ×3 (08:02→17:05)
[2022-02-02] MEDS: CeFAZolin 2,000 MG/120 ML BAG IVPB SCH (08:09)
[2022-02-02] MEDS: Aspirin Enteric Coated 81 MG Tablet PO SCH (08:10)
[2022-02-02] MEDS: Ciprofloxacin/Dex *EAR* Susp 7.5 ML BOTTLE RIGHT EAR SCH (08:10)
[2022-02-02] MEDS: lisinopriL 20 MG TABLET PO SCH (08:15)
[2022-02-02 10:24] LABS: Basophils % 0.4 %; Eosinophils # 0.2 K/mcL (0.0-0.6); Eosinophils % 2.4 %; Hematocrit 36.8 % (37.5-50.1); Hemoglobin 11.6 g/dL (12.9-16.9); Immature Granulocytes % 0.5 % (0-4); Lymphocytes # 2.1 K/mcL (0.6-4.6); Lymphocytes % 21.2 %; Mean Corpuscular HGB Conc 31.5 g/dL (31.6-35.5); Mean Corpuscular Hemoglobin 27.2 pg (28.0-33.3); Mean Corpuscular Volume 86.2 fL (83.0-100.0); Mean Platelet Volume 9.3 fL (9.4-12.4); Monocytes # 0.8 K/mcL (0.0-1.3); Monocytes % 8.5 %; Neutrophils # 6.5 K/mcL (1.6-8.9); Platelet Count 270 K/mcL (140-400); Red Blood Count 4.27 M/mcL (4.19-5.50); Red Cell Distribution Width 15.4 % (11.5-14.5); White Blood Count 9.7 K/mcL (4.3-11.1)
[2022-02-02 10:44] LABS: Potassium 4.4 mEq/L (3.5-5.1)
[2022-02-02 11:04] VITALS: BP 121/51; PULSE 85; TEMP 97.6; O2SAT 97
[2022-02-02] MEDS ORDERED: Flu Vac QV 22-23 (6MOS UP)/PF 0.5 ML SYRINGE IM ONE (15:52)
[2022-02-02] MEDS: *HR* Rivaroxaban 10 MG TABLET PO SCH (17:02)
[2022-02-02] MEDS: *HR* OxyCODONE Immed Rel 5 MG TABLET PO PRN (17:14)
== END 2022-02-02 18:05 | disposition home or self-care (01) ==
LOC: EMEROOARM 11:37 → 4WAOSI 11:37 → SUATTDRO 18:30 → 4WAOSI 19:55
PROVIDERS: ADMIT Internal Medicine; ATTEND Registered Nurse